=== PATIENT | male | born 1945 | race Caucasian/White ===

== ENCOUNTER → 2020-01-27 08:23 | Outpatient (REF) | payer MEDICARE, SELFPAY ==
--- NOTE | 2020-01-27 08:31 | CA_ITS ---
Transthoracic Echocardiogram Patient (Last, First, Middle): Martin Charles J Gender: Male Date of : 1945 Age: 74 Procedure Date: 01/27/2020 Procedure Type: Transthoracic Echocardiogram Location: OP Height: 177.8 cm Weight: 81.65 kg BSA: 2.00 m2 Heart Rate: bpm BP: 140 / 80 mmHg Public Speaking Coach: MEAGHAN Referring MD: Andres Trinidad MD Breaker Machine Operator: Andres Trinidad MD Symptoms: AFIB Study Quality: Good ECG Rhythm: Sinus Conclusions: - 1. Normal LV systolic function with impaired relaxation filling pattern 2. Mildly dilated left atrium 3. Trace to mild aortic regurgitation 4. Normal RV systolic pressure 5. No pericardial effusion Findings Left Ventricle Normal left ventricular cavity size. There is normal left ventricular wall thickness. The left ventricular systolic function is normal. The visually estimated ejection fraction is between 55-60%. Spectral Doppler is indicative of an impaired relaxation filling pattern. E/E prime ratio is between 8 and 15 consistent with indeterminate filling pressures. Right Ventricle Normal right ventricular cavity size and systolic function. There is a pacemaker wire seen in the right ventricle. Atria The left atrium is mildly dilated. Interatrial shunt cannot be excluded. The right atrium is normal in size. A pacemaker wire is identified in the right atrium. Aortic Valve Normal aortic valve structure and function. There is mild calcification of the aortic valve. There is no aortic valve stenosis. There is mild aortic valve regurgitation. Mitral Valve There is mild anterior and posterior mitral leaflet thickening. There is mild mitral annular calcification. There is trace mitral valve regurgitation. There is no mitral valve stenosis. Pulmonic Valve The pulmonic valve was not well visualized. Tricuspid Valve Likely normal tricuspid valve structure and function. There is mild tricuspid valve regurgitation. The right ventricular systolic pressure is normal. The right ventricular systolic pressure is 25 mmHg. Normal right atrial pressure. There is no evidence of pulmonary hypertension. Great Vessels All visible segments of the aorta are normal in size. The pulmonary artery was not well visualized. Venous The inferior vena cava is normal in size and collapses greater than 50% with inspiration. Pericardium/Pleural There is no evidence of pericardial effusion. Prior Study Comparison No significant change compared to prior study dated: 11/11/2019. Measurements M-Mode Liner Measurements Normals - Women/Men LVIDd: 5.63 3.9-5.3/4.2-5.9 cm LVIDd Index: 2.82 1.9-3.2 cm/m2 LVIDs: 3.84 2.0-3.8 cm M-Mode Volumes LV EDV: 156.00 LV ESV: 63.50 2D Linear Measurements IVSd: 1.10 0.6-0.9/0.6-1.0 cm LVIDd: 5.14 3.9-5.3/4.2-5.9 cm LVIDd Index: 2.57 2.4-3.2/2.2-3.1 cm/m2 LVIDs: 3.73 2.0-3.6 cm LVPWd: 0.94 0.7-1.1 cm Ao Root: 3.50 2.1-3.5 cm LA Diam: 3.90 2.7-3.8/3.0-4.0 cm LAIDs Index: 1.95 1.5-2.3 cm/m2 LV Mass: 311.53 67-162/88-224 g LV Mass Index: 155.77 43-95/49-115 g/m2 LVOT Diam: 2.40 3.0+(-)1.3 cm 2D Systolic Function EF 4C: 51.10 >55% EF 2C: 57.40 >55% EF BiP: 55.50 >55% M-Mode Systolic Function FS: 31.80 27-47/25-43% LVEF: 59.30 >55% Mitral Valve MV Pk E: 0.48 MV PK A: 0.66 MV Decel Time: 387.00 E/A: 0.70 E'Lateral: 6.67 E'Medial: 5.22 E/E' Med: 9.10 E/E' Lat: 7.10 PHT: 113.00 MVA PHT: 1.95 Decel [place]: 1.23 Aortic Valve AoV Pk Lior: 1.17 AoV Pk Grad: 5.00 AI Pk Lior: 4.81 AI [place]: 1.90 LVOT LVOT Pk Lior: 0.77 LVOT Mn Lior: 0.51 LVOT VTI: 0.21 LVOT Pk Grad: 2.00 LVOT Mn Grad: 1.00 LVOT Diam: 2.40 LVOT Area: 4.52 Diastolic Function MV Pk E: 0.48 MV Pk A: 0.66 E/A: 0.70 E'Medial: 5.22 E/E' Med: 9.10 E' Laterial: 6.67 E/E' Lat: 7.10 Tricuspid Valve TR Pk Lior: 2.32 TR Pk Grad: 22.00 RA Press: 3.00 RVSP: 25.00 Great Vessels Aorta Ao Root-2D: 3.50 2.0-3.7 cm Ao Asc: 3.90 2.1-3.4 cm Updated in Other Vendor System with Status of Final Andres Trinidad MD electronically signed on 01/28/2020 3:42:25 PM with status of Final
== END ==
LOC: HO.CARD 08:23
PROVIDERS: PCP Internal Medicine; Visit Provider Internal Medicine Cardiovascular Disease
DX: I48.0 Paroxysmal atrial fibrillation (principal); I10 Essential (primary) hypertension; I25.10 Atherosclerotic heart disease of native coronary artery without angina pectoris; Z95.5 Presence of coronary angioplasty implant and graft
CPT/HCPCS: 93306

== ENCOUNTER → 2020-02-08 08:18 | Outpatient (BNVA) | payer MEDICARE, SELFPAY | PROVIDERS: PCP Internal Medicine; Referring Provider Internal Medicine; Visit Provider Internal Medicine Cardiovascular Disease | DX: Z45.018 Encounter for adjustment and management of other part of cardiac pacemaker (principal); I25.10 Atherosclerotic heart disease of native coronary artery without angina pectoris; I48.0 Paroxysmal atrial fibrillation | CPT/HCPCS: 99212 ==

== ENCOUNTER → 2020-02-21 08:41 | Outpatient (BNVA) | payer MEDICARE, SELFPAY | PROVIDERS: PCP Internal Medicine; Visit Provider Urology | DX: Z85.51 Personal history of malignant neoplasm of bladder (principal) | CPT/HCPCS: 52000; 81002; 99212 ==

== ENCOUNTER 2020-02-22 06:08 | Outpatient (REF) | payer MEDICARE, SELFPAY ==
[2020-02-22 07:19] LABS: MANUAL DIFF FLAG NO
[2020-02-22 07:21] LABS: Basophils Percent Auto 0.4 % (0-2); Eosinophils Absolute Auto 0.1 X10*3/uL (0.0-0.4); Eosinophils Percent Auto 1.9 % (0-4); Hematocrit 39.2 % (42-52); Hemoglobin 13.4 g/dl (14.0-18.0); Imm Gran Abs Auto 0.01 X10*3/uL (0.00-0.03); Imm Gran Pct Auto 0.2 % (0.0-0.4); Lymphocytes Absolute Auto 0.9 X10*3/uL (1.2-4.9); Lymphocytes Percent Auto 16.9 % (20-40); Mean Corpuscular HGB Conc 34.2 g/dl (31.0-36.0); Mean Corpuscular Hemoglobin 32.1 pg (27.0-33.0); Mean Corpuscular Volume 93.8 fL (80-98); Mean Platelet Volume 11.3 fL (9.4-12.4); Monocytes Absolute Auto 0.4 X10*3/uL (0.1-1.2); Neutrophils Absolute Auto 3.9 X10*3/uL (2.0-8.3); Neutrophils Percent Auto 72.6 % (45-73); Platelet Count 165 X10*3/uL (160-400); Red Blood Count 4.18 X10*6/uL (4.60-5.80); Red Cell Distribution Width 12.6 % (11.0-16.0); White Blood Count 5.4 X10*3/uL (4.8-10.8)
[2020-02-22 07:59] LABS: Alanine Aminotransferase 17 U/L (0-40); Albumin Level 3.9 g/dL (3.5-5.0); Alkaline Phosphatase 83 U/L (39-117); Anion Gap 12 (12-20); Aspartate Amino Transferase 15 U/L (5-37); Bilirubin Total 1.6 mg/dL (0.0-1.0); Blood Urea Nitrogen 21 mg/dL (9-16); Calcium 8.7 mg/dL (8.4-10.2); Carbon Dioxide 27 mmol/L (22-29); Chloride 108 mmol/L (96-108); Estimated Glomerular Filt Rate > 60; Glucose Random 107 mg/dL (60-115); Potassium 4.1 mmol/l (3.3-5.1); Sodium 143 mmol/L (135-145); Total Protein 6.2 g/dL (6.5-8.0)
== END 2020-02-22 06:09 | disposition home or self-care (01) ==
LOC: HO.LAB 06:08
PROVIDERS: PCP Internal Medicine Medical Oncology; Referring Provider Internal Medicine Medical Oncology; Visit Provider Internal Medicine Cardiovascular Disease
DX: C68.9 Malignant neoplasm of urinary organ, unspecified (principal)
CPT/HCPCS: 36415; 80053; 85025

== ENCOUNTER 2020-03-15 08:25 | Outpatient (REF) | payer MEDICARE, SELFPAY ==
--- NOTE | 2020-03-15 08:28 | US_ITS ---
EXAMINATION: US EXTRACRANIAL CAROTID DUPLEX, BILATERAL CLINICAL INFORMATION: History of carotid artery disease. COMPARISON: Carotid artery ultrasound on October 22, 2018 TECHNIQUE: Real-time ultrasound and Doppler techniques (integrating B-mode 2-D vascular images, Doppler spectral analysis and color-flow Doppler imaging) were utilized to interrogate the extracranial carotid arteries, the vertebral arteries and proximal subclavian arteries bilaterally. The degree of stenosis is determined by criteria similar to NASCET. FINDINGS: Right Side: 1. There is minimal atherosclerotic plaque seen in the bifurcation/proximal ICA region. 2. The common carotid artery PSV proximally is 82.7 cm/s and distally 63.9 cm/s. 3. The proximal internal carotid artery velocities are 57.8 cm/s systolic and 11.4 cm/s diastolic. 4. The proximal external carotid artery PSV is 111 cm/s. 5. The vertebral artery shows antegrade flow. 6. The subclavian artery waveforms are normal. Left Side: 1. There is minimal atherosclerotic plaque seen in the bifurcation/proximal ICA region. 2. The common carotid artery PSV proximally is 83.3 cm/s and distally 73.3 cm/s. 3. The proximal internal carotid artery velocities are 49.9 cm/s systolic and 13.8 cm/s diastolic. 4. The proximal external carotid artery PSV is 215 cm/s. 5. The vertebral artery shows antegrade flow. 6. The subclavian artery waveforms are normal. US/US carotid duplex BI IMPRESSION: 1. RIGHT: Minimal, non-hemodynamically significant stenosis of the proximal right internal carotid artery corresponding to a 0-49% stenosis by velocity criteria. 2. LEFT: Minimal, non-hemodynamically significant stenosis of the proximal left internal carotid artery corresponding to a 0-49% stenosis by velocity criteria. 3. Elevated velocity within the left external carotid artery of 215 cm/s and is consistent with moderate stenosis. 4. There is no change in the category severity of disease when compared to the previous study dated 10/22/2020.
== END 2020-03-15 08:26 | disposition home or self-care (01) ==
LOC: HO.HMGCX 08:25
PROVIDERS: Visit Provider Internal Medicine Cardiovascular Disease
DX: I77.9 Disorder of arteries and arterioles, unspecified (principal); I67.2 Cerebral atherosclerosis
CPT/HCPCS: 93880

== ENCOUNTER 2020-04-20 08:19 | Emergency (ER) | payer MEDICARE, SELFPAY ==
--- NOTE | ~2020-04-20 | CT_ITS ---
EXAMINATION: CT ABDOMEN AND PELVIS WITHOUT CONTRAST CLINICAL INFORMATION: Hematuria. History of bladder cancer COMPARISON: PET/CT of January 09, 2017 TECHNIQUE: Multidetector volumetric imaging was performed from the superior aspect of the liver through the pubic symphysis. Sagittal and coronal reformatted images were obtained on the technologist's workstation. This CT examination was performed using dose optimization techniques as appropriate, variously including the following: *Automated exposure control *Adjustment of mA and/or kV according to patient size (this includes techniques or standardized protocols for targeted exams where dose is matched to indication/reason for exam; i.e. extremities or head) *Use of iterative reconstruction technique DLP: 637 mGy-cm FINDINGS: LUNG BASES: Pacemaker in place. Coronary artery calcification present. No pleural effusion. No pericardial effusion. LIVER, GALLBLADDER, AND BILIARY TREE: Hepatomegaly is present with vertical span of approximately 21 cm. No focal solid hepatic lesion or biliary ductal dilatation is present. Multiple hepatic cysts are seen. The gallbladder is unremarkable with no evidence of radiopaque gallstones, gallbladder wall thickening, or obvious pericholecystic inflammatory changes. PANCREAS: Unremarkable. SPLEEN: Unremarkable. ADRENAL GLANDS: There is a 1.3 cm lipid rich adenoma seen within the left adrenal gland. The right adrenal gland appears unremarkable. KIDNEYS AND URETERS: There is a 1.4 cm cyst seen within the lower pole of the right kidney. No hydronephrosis or calculi appreciated. Right ureter appears unremarkable. There is moderate left hydronephrosis there is prominence of the left ureter. No calculi are appreciated. BLADDER: About the posterior left lateral aspect of the bladder wall there is a soft tissue density measuring approximately 1.9 x 1.7 cm in size suspicious for bladder wall mass. There are bilateral posterior lateral bladder diverticuli present. GASTROINTESTINAL TRACT: No dilated loops of large or small bowel evident. No free air or free fluid. There is diverticulosis of the colon without evidence of acute diverticulitis. No pericolonic inflammatory change. Appendix not appreciated. ABDOMINAL WALL: There is some soft tissue density seen about the anterior lower left abdominal wall which was present to some degree on study of January 09, 2017 and may be related to previous hernia repair or vascular procedure. Clinical correlation suggested. LYMPH NODES: No lymphadenopathy appreciated. VASCULAR: There is moderate calcified aortoiliac plaque present. No abdominal aortic aneurysm. Calcific plaque is seen at the origin of the visceral vessels. PELVIC VISCERA: Urinary bladder findings as described above. No abnormal pelvic mass. Prostatic calcifications present. OSSEOUS STRUCTURES: No suspicious destructive bony lesions identified. There is degenerative disc disease seen at the L5-S1 level. CT/CT abdomen pelvis wo con IMPRESSION: Left-sided posterior bladder wall mass with moderate left hydronephrosis. Bilateral bladder diverticuli. Hepatomegaly.
[2020-04-20 08:25] VITALS: BP 186/86; PULSE 65; RESP 18; TEMP 36.7; O2SAT 98; BMI 25.8
--- NOTE | 2020-04-20 08:48 | ED_ITS ---
HPI - Male Genitourinary General Chief complaint: Urogenital-Male Stated complaint: urinating blood Time Seen by Provider: 04/20/20 08:41 Source: patient Mode of arrival: ambulatory Limitations: no limitations History of Present Illness HPI Narrative: 75 yo male on xarelto for afib hx of bladder cancer treated with excision comes in with gross hematuria starting this AM - no pain, took his xarelto last night Complaint: other (hematuria) Onset (ago): hour(s) (few) Duration: intermittent Location: penis Severity: moderate Quality: burning Relieving factors: none Exacerbating factors: none Associated symptoms: Reports blood in urine Related Data Home Medications Medication Instructions Recorded Confirmed aspirin 81 mg tablet,delayed 81 mg PO DAILY 02/08/20 02/21/20 release atenolol 25 mg tablet 25 mg PO DAILY 02/08/20 02/21/20 atorvastatin 40 mg tablet mg PO 02/08/20 02/21/20 nifedipine 30 mg tablet,extended 30 mg PO DAILY 02/08/20 02/21/20 release 24 hr rivaroxaban 20 mg tablet 20 mg PO DAILY 02/08/20 02/21/20 nifedipine 60 mg tablet,extended 60 mg PO DAILY 02/21/20 02/21/20 release Previous Rx's Medication Instructions Recorded cefuroxime axetil 500 mg PO BID 7 Days #14 tab 04/20/20 Allergies Allergy/AdvReac Type Severity Reaction Status Date / Time clopidogrel [From PLAVIX] Allergy Intermediate HIVES, rash Verified 02/21/20 08:59 Penicillins [PENICILLINS] Allergy Intermediate HIVES Verified 02/21/20 08:59 Sulfa (Sulfonamide Allergy Intermediate RASH Verified 02/21/20 08:59 Antibiotics) [SULFA (SULFONAMIDE ANTIBIOTICS)] Review of Systems Review of Systems: Constitutional : No Weight loss, No Fever, No Chills ENT/Mouth : No sore throat, No Rhinorrhea Eyes: No Swelling, No Redness Cardiovascular : No Chest Pain, No SOB, NoEdema Respiratory : No Cough, No Sputum, No Wheezing Gastrointestinal : no Nausea, no Vomiting, positive Diarrhea, no abdominal Pain, No Hematochezia, No Melena Genitourinary : pos Dysuria, No Urinary Frequency, posHematuria, No Urgency Musculoskeletal : No joint pain, No Myalgias, No Joint Swelling Skin : No Skin Lesions, No rash Neuro : No Weakness, No Numbness, No Dizziness, No Headache Psych : No Anxiety/Panic, No Depression Heme/Lymph: No Bruising, No Lymphadenopathy Endocrine : No Polyuria, No Polydipsia All other systems reviewed and are negative. [facility] Past Medical History Medical History CAD (coronary artery disease) Cardiac pacemaker in situ Carotid disease, bilateral Chronic kidney disease CVA (cerebral vascular accident) HTN (hypertension) Hyperlipidemia Paroxysmal atrial fibrillation Sick sinus syndrome Surgical History History of permanent cardiac pacemaker placement Hx of cardiac cath Hx of colonoscopy Hx of transurethral resection of prostate Stented coronary artery Family History Family History Father CVD (cardiovascular disease) Mother CVD (cardiovascular disease) Social History Social History Alcohol intake: never Smoking Status: Never smoker Use of substances other than those prescribed or required for medical reasons: No Advance Directives: Yes Advance Directives Information Provided: Yes Advance Directives on File: No Physical Exam Vital Signs: Vital Signs: Last Vital Signs Temp 98.0 F 04/20/20 08:25 Pulse 65 04/20/20 08:25 Resp 18 04/20/20 08:25 BP 186/86 H 04/20/20 08:25 Pulse Ox 98 04/20/20 08:25 Body Mass Index 25.8 Appearance: Alert. Oriented X3. No acute distress. Eyes: Pupils equal, round and reactive to light. ENT: Pharynx normal. Neck: Normal inspection. Neck supple. CVS: Normal heart rate and rhythm. Pulses normal. Respiratory: No respiratory distress. Breath sounds normal. Abdomen: Soft and nontender. Skin: Skin warm and dry. Normal skin color. Normal skin turgor. Extremities: No lower extremity edema. No calf ttp Neuro: Oriented X 3. No motor deficit. No sensory deficit. Course Course Course Narrative: message sent to Dr. Rosa regarding mass, patient now notes his hematuria is clearing in the ED. 1022 follow up as outpatient given the hematuria will hold xarelto until seen by Urology, place on antibiotics given the dysuria MDM - Male Genitourinary MDM Narrative Medical decision making narrative: 75 yo male with c/o hematuria but no pain has hx of bladder cancer on recheck 1 month ago with Urology noted to be all cleared - he is on xarelto for PAF - notes he has brb when urinating this AM only no clots, no pain, no trauma, took his xarelto last night - will need labs, UA, CT scan for mass, dispo per results and findings. Lab Data Result diagrams: 04/20/20 08:50 04/20/20 08:50 Labs: Lab Results 04/20/20 04/20/20 04/20/20 Range/Units 08:35 08:50 08:50 WBC 5.9 (4.8-10.8) X10*3/uL RBC 4.06 L (4.60-5.80) X10*6/uL Hgb 13.3 L (14.0-18.0) g/dl Hct 37.6 L (42-52) % MCV 92.6 (80-98) fL MCH 32.8 (27.0-33.0) pg MCHC 35.4 (31.0-36.0) g/dl RDW 12.4 (11.0-16.0) % Plt Count 152 L (160-400) X10*3/uL MPV 10.9 (9.4-12.4) fL Immature Gran % (Auto) 0.2 (0.0-0.4) % Neut % (Auto) 72.3 (45-73) % Lymph % (Auto) 18.1 L (20-40) % [place] % (Auto) 7.9 (2-11) % Eos % (Auto) 1.2 (0-4) % Baso % (Auto) 0.3 (0-2) % Lymph # (Auto) 1.1 L (1.2-4.9) X10*3/uL [place] # (Auto) 0.5 (0.1-1.2) X10*3/uL Eos # (Auto) 0.1 (0.0-0.4) X10*3/uL Baso # (Auto) 0.0 (0.0-0.2) X10*3/uL Abs Immat Gran (auto) 0.01 (0.00-0.03) X10*3/uL Absolute Neuts (auto) 4.3 (2.0-8.3) X10*3/uL Absolute Nucleated RBC 0.000 (0.0-0.012) X10*3/uL Nucleated RBC % (auto) 0.0 (0.0-0.2) /100WBC PT (10.8-13.0) SEC INR (0.9-1.1) APTT (24.1-38.0) SEC Sodium 140 (135-145) mmol/L Potassium 3.9 (3.3-5.1) mmol/L Chloride 108 (96-108) mmol/L Carbon Dioxide 23 (22-29) mmol/L Anion Gap 13 (12-20) BUN 20 H (9-16) mg/dL Creatinine 1.12 (0.5-1.4) mg/dL Estim Creat Clear Calc 60.6 Estimated GFR > 60 Random Glucose 113 (60-115) mg/dL Calcium 8.7 (8.4-10.2) mg/dL Magnesium 1.9 (1.6-2.6) mg/dL Total Bilirubin 1.4 H (0.0-1.0) mg/dL Direct Bilirubin 0.5 (0.0-0.5) mg/dL AST 15 (5-37) U/L ALT 13 (0-40) U/L Alkaline Phosphatase 88 (39-117) U/L Total Protein 6.4 L (6.5-8.0) g/dL Albumin 3.8 (3.5-5.0) g/dL Urine Color RED Urine Appearance TURBID Urine pH 6.5 (5.0-8.0) Ur Specific [place] 1.020 (1.005-1.025) Urine Protein 2+ H (NEG-TRACE) MG/DL Urine Glucose (UA) NEG (NEG) MG/DL Urine Ketones NEG (NEG) MG/DL Urine Blood 3+ H (NEG) Urine Nitrite SEE NOTE (NEG) Ur Leukocyte Esterase SEE NOTE (NEG) Urine RBC TNTC H (0) /HPF Urine WBC 0-2 (0-4) /HPF Ur Squamous Epith Cells NONE /LPF Urine Bacteria TNP COVID-19 (DANYA) (Negative) COVID-19 Clin Com Blood Type Antibody Screen 04/20/20 04/20/20 04/20/20 Range/Units 08:50 08:50 08:56 WBC (4.8-10.8) X10*3/uL RBC (4.60-5.80) X10*6/uL Hgb (14.0-18.0) g/dl Hct (42-52) % MCV (80-98) fL MCH (27.0-33.0) pg MCHC (31.0-36.0) g/dl RDW (11.0-16.0) % Plt Count (160-400) X10*3/uL MPV (9.4-12.4) fL Immature Gran % (Auto) (0.0-0.4) % Neut % (Auto) (45-73) % Lymph % (Auto) (20-40) % [place] % (Auto) (2-11) % Eos % (Auto) (0-4) % Baso % (Auto) (0-2) % Lymph # (Auto) (1.2-4.9) X10*3/uL [place] # (Auto) (0.1-1.2) X10*3/uL Eos # (Auto) (0.0-0.4) X10*3/uL Baso # (Auto) (0.0-0.2) X10*3/uL Abs Immat Gran (auto) (0.00-0.03) X10*3/uL Absolute Neuts (auto) (2.0-8.3) X10*3/uL Absolute Nucleated RBC (0.0-0.012) X10*3/uL Nucleated RBC % (auto) (0.0-0.2) /100WBC PT 17.2 H (10.8-13.0) SEC INR 1.4 H (0.9-1.1) APTT 41.6 H (24.1-38.0) SEC Sodium (135-145) mmol/L Potassium (3.3-5.1) mmol/L Chloride (96-108) mmol/L Carbon Dioxide (22-29) mmol/L Anion Gap (12-20) BUN (9-16) mg/dL Creatinine (0.5-1.4) mg/dL Estim Creat Clear Calc Estimated GFR Random Glucose (60-115) mg/dL Calcium (8.4-10.2) mg/dL Magnesium (1.6-2.6) mg/dL Total Bilirubin (0.0-1.0) mg/dL Direct Bilirubin (0.0-0.5) mg/dL AST (5-37) U/L ALT (0-40) U/L Alkaline Phosphatase (39-117) U/L Total Protein (6.5-8.0) g/dL Albumin (3.5-5.0) g/dL Urine Color Urine Appearance Urine pH (5.0-8.0) Ur Specific [place] (1.005-1.025) Urine Protein (NEG-TRACE) MG/DL Urine Glucose (UA) (NEG) MG/DL Urine Ketones (NEG) MG/DL Urine Blood (NEG) Urine Nitrite (NEG) Ur Leukocyte Esterase (NEG) Urine RBC (0) /HPF Urine WBC (0-4) /HPF Ur Squamous Epith Cells /LPF Urine Bacteria COVID-19 (DANYA) Negative (Negative) COVID-19 Clin Com See Note Blood Type B Positive Antibody Screen NEGATIVE Discharge Plan Discharge Clinical Impression: Gross hematuria, Bladder mass Patient Disposition: Home, Self-Care Instructions: Hematuria (ED) Additional Instructions: STOP XARELTO UNTIL YOU ARE SEEN BY UROLOGY IF YOU CANNOT URINATE PLEASE RETURN TO THE ED, IF YOU HAVE WORSENING SYMPTOMS PLEASE RETURN Prescriptions: New cefuroxime axetil 500 mg tablet 500 mg PO BID 7 Days Qty: 14 RF: 0 No Action Xarelto 20 mg tablet 20 mg PO DAILY RF: 0 atenolol 25 mg tablet 25 mg PO DAILY RF: 0 atorvastatin 40 mg tablet PO RF: 0 nifedipine 30 mg tablet extended release 24hr 30 mg PO DAILY RF: 0 aspirin [Adult Low Dose Aspirin] 81 mg tablet,delayed release (DR/EC) 81 mg PO DAILY RF: 0 nifedipine 60 mg tablet extended release 60 mg PO DAILY RF: 0 Referrals: Regan Rosa MD [Physician] - 1 day (call office today )
[2020-04-20 09:03] LABS: MANUAL DIFF FLAG NO
[2020-04-20 09:07] LABS: Basophils Percent Auto 0.3 % (0-2); Eosinophils Absolute Auto 0.1 X10*3/uL (0.0-0.4); Eosinophils Percent Auto 1.2 % (0-4); Hematocrit 37.6 % (42-52); Hemoglobin 13.3 g/dl (14.0-18.0); Imm Gran Abs Auto 0.01 X10*3/uL (0.00-0.03); Imm Gran Pct Auto 0.2 % (0.0-0.4); Lymphocytes Absolute Auto 1.1 X10*3/uL (1.2-4.9); Lymphocytes Percent Auto 18.1 % (20-40); Mean Corpuscular HGB Conc 35.4 g/dl (31.0-36.0); Mean Corpuscular Hemoglobin 32.8 pg (27.0-33.0); Mean Corpuscular Volume 92.6 fL (80-98); Mean Platelet Volume 10.9 fL (9.4-12.4); Monocytes Absolute Auto 0.5 X10*3/uL (0.1-1.2); Monocytes Percent Auto 7.9 % (2-11); Neutrophils Absolute Auto 4.3 X10*3/uL (2.0-8.3); Neutrophils Percent Auto 72.3 % (45-73); Platelet Count 152 X10*3/uL (160-400); Red Blood Count 4.06 X10*6/uL (4.60-5.80); Red Cell Distribution Width 12.4 % (11.0-16.0); White Blood Count 5.9 X10*3/uL (4.8-10.8)
[2020-04-20 09:14] LABS: INTERNATIONAL NORM RATIO 1.4 (0.9-1.1); Prothrombin Time 17.2 SEC (10.8-13.0)
[2020-04-20 09:17] LABS: Partial Thromboplastin Time 41.6 SEC (24.1-38.0)
[2020-04-20 09:32] LABS: COVID-19 Test Negative (Negative)
[2020-04-20 09:36] LABS: Appearance Urine TURBID
[2020-04-20 09:37] LABS: Glucose Urine UA NEG (NEG); PH 6.5 (5.0-8.0); Urine Blood 3+ (NEG)
[2020-04-20 09:38] LABS: Alanine Aminotransferase 13 U/L (0-40); Albumin Level 3.8 g/dL (3.5-5.0); Alkaline Phosphatase 88 U/L (39-117); Anion Gap 13 (12-20); Aspartate Amino Transferase 15 U/L (5-37); Bilirubin Direct 0.5 mg/dL (0.0-0.5); Bilirubin Total 1.4 mg/dL (0.0-1.0); Blood Urea Nitrogen 20 mg/dL (9-16); Calcium 8.7 mg/dL (8.4-10.2); Carbon Dioxide 23 mmol/L (22-29); Chloride 108 mmol/L (96-108); Creatinine Clr Calc Pharmacy 60.6; Estimated Glomerular Filt Rate > 60; Glucose Random 113 mg/dL (60-115); Magnesium 1.9 mg/dL (1.6-2.6); Potassium 3.9 mmol/L (3.3-5.1); Sodium 140 mmol/L (135-145); Total Protein 6.4 g/dL (6.5-8.0)
[2020-04-20 09:38] LABS: Color Urine RED; Urine Ketones NEG (NEG); Urine Protein 2+ MG/DL (NEG-TRACE)
[2020-04-20 09:39] LABS: UACC Culture Trigger YES
[2020-04-20 09:41] LABS: RBC Urine TNTC /HPF (0)
[2020-04-20 09:42] LABS: WBC Urine 0-2 /HPF (0-4)
--- NOTE | 2020-04-20 10:25 | PC.NURSE ---
plan to contact urology for consult regarding new bladder mass noted on ct scan. pt reports to this rn that the urine is starting to clear up to a light pink color. aware.
== END 2020-04-20 10:50 | disposition home or self-care (01) ==
PROVIDERS: Emergency Provider Emergency Medicine; PCP Internal Medicine
DX: R31.0 Gross hematuria (principal); N32.9 Bladder disorder, unspecified; Z20.822 Contact with and (suspected) exposure to COVID-19; I12.9 Hypertensive chronic kidney disease with stage 1 through stage 4 chronic kidney disease, or unspecified chronic kidney disease; N18.9 Chronic kidney disease, unspecified; Z85.51 Personal history of malignant neoplasm of bladder; I48.91 Unspecified atrial fibrillation; Z79.01 Long term (current) use of anticoagulants; Z79.82 Long term (current) use of aspirin; Z95.0 Presence of cardiac pacemaker; Z86.73 Personal history of transient ischemic attack (TIA), and cerebral infarction without residual deficits
CPT/HCPCS: 36415; 74176; 80048; 80076; 81001; 81003; 83735; 85025; 85610; 85730; 86850; 86900; 86901; 87086; 87635; 99284

== ENCOUNTER → 2020-04-25 11:18 | Outpatient (BNVA) | payer MEDICARE, SELFPAY | PROVIDERS: PCP Internal Medicine; Visit Provider Urology | DX: C67.9 Malignant neoplasm of bladder, unspecified (principal); N13.30 Unspecified hydronephrosis | CPT/HCPCS: 99212 ==

== ENCOUNTER 2020-05-22 06:28 | Day surgery (SDC) | payer MEDICARE, SELFPAY ==
--- NOTE | 2020-05-16 | ECG_ITS ---
Test Reason : PREOP Blood Pressure : / mmHG Vent. Rate : 063 BPM Atrial Rate : 063 BPM P-R Int : 208 ms QRS Dur : 118 ms QT Int : 428 ms P-R-T Axes : -07 -32 053 degrees QTc Int : 437 ms Atrial-paced rhythm with occasional Premature ventricular complexes Left axis deviation Lateral infarct , age undetermined Abnormal ECG When compared with ECG of 21-MAR-2010 13:45, Electronic atrial pacemaker has replaced Sinus rhythm Referred By: Ambreen Drew Electronically Signed By:MARIAM TORO
[2020-05-16 11:45] VITALS: BP 163/80; PULSE 60; RESP 16; O2SAT 98; BMI 26.9
--- NOTE | 2020-05-16 12:08 | HO.ANESPROP2 ---
Documented by User: Ambreen Floresney 05/17/20 13:12 HPI - Anesthesia Eval Consult details Narrative: 75yo M for Cystoscopy with Retrograde & Bladder Biopsy 02/2020 Cardiology office visit - stable CAD, BP meds adjusted, pacer reprogrammed for improved rate response to his activity level. [facility] Active Problems Active Problems: All Active Problems (Updated 05/15/20 @ 15:12 by Colleen Beatty) Bladder cancer (Acute) Hydronephrosis (Acute) CAD (coronary artery disease) (Acute) Paroxysmal atrial fibrillation (Acute) Cardiac pacemaker in situ (Acute) Sick sinus syndrome (Acute) Hyperlipidemia (Acute) HTN (hypertension) (Acute) Carotid disease, bilateral (Acute) Chronic kidney disease (Acute) Past Medical History Medical History Acoustic neuroma CAD (coronary artery disease) Cardiac pacemaker in situ Carotid disease, bilateral Chronic kidney disease CVA (cerebral vascular accident) History of TIAs HTN (hypertension) Hyperlipidemia Paroxysmal atrial fibrillation Sick sinus syndrome Family History Family History Father CVD (cardiovascular disease) Mother CVD (cardiovascular disease) Family history of problems with anesthesia: No Surgical History Surgical History History of permanent cardiac pacemaker placement Hx of cardiac cath Hx of colonoscopy Hx of cystoscopy Hx of left inguinal hernia repair Stented coronary artery History of Problems with Anesthesia: No Social History Social History Alcohol intake: never Smoking Status: Never smoker Use of substances other than those prescribed or required for medical reasons: No Advance Directives: No Advance Directives Information Provided: No Advance Directives on File: No Recently lost weight without trying: No Narrative Narrative: No recent illness. Treadmill 1 hour daily without CP or SOB. Meds Allergies Allergy/AdvReac Type Severity Reaction Status Date / Time clopidogrel [From PLAVIX] Allergy Intermediate HIVES, rash Verified 05/22/20 06:51 Sulfa (Sulfonamide Allergy Intermediate RASH Verified 05/22/20 06:51 Antibiotics) [SULFA (SULFONAMIDE ANTIBIOTICS)] Home Medications Medication Instructions Recorded Confirmed Last Taken Type aspirin 81 mg tablet,delayed 81 mg PO DAILY 02/08/20 05/15/20 05/18/20 History release atenolol 25 mg tablet 25 mg PO .AT NOON 02/08/20 05/16/20 Unknown History atorvastatin 40 mg tablet 40 mg PO BEDTIME 02/08/20 05/15/20 Unknown History nifedipine 30 mg tablet,extended 30 mg PO DAILY 02/08/20 05/15/20 05/22/20 04:30 History release 24 hr rivaroxaban 20 mg tablet 20 mg PO DAILY 02/08/20 05/15/20 05/18/20 History cyanocobalamin (vitamin B-12) 1,000 mcg PO DAILY 05/15/20 05/15/20 Unknown History [Vitamin B-12] doxazosin 1 tab PO DAILY@1700 05/15/20 05/16/20 Unknown History Exam Exam Date and Time: May 16, 2020 1208 Height,Weight and Vital Signs: Height 5 ft 10 in Weight 85.1 kg Last Vital Signs Pulse 60 05/16/20 11:45 Resp 16 05/16/20 11:45 BP 163/80 H 05/16/20 11:45 Pulse Ox 98 05/16/20 11:45 Pertinent Lab Results Pertinent Lab Results: Laboratory Tests 04/20/20 04/20/20 08:50 08:50 WBC 5.9 Hgb 13.3 L Hct 37.6 L Plt Count 152 L Sodium 140 Potassium 3.9 Chloride 108 Carbon Dioxide 23 BUN 20 H Creatinine 1.12 Narrative Narrative: EKG 04/2020 A-paced with Occ PVCs LAD Lateral infarct, age undetermined (seen on 08/2019 EKG) Pacer Interr 03/04/20 DDDR-60, AP 51%, [employer] 10% AF burden 12% ECHO 01/2020 Conclusions: - 1. Normal LV systolic function with impaired relaxation filling pattern, EF 55-60% 2. Mildly dilated left atrium 3. Trace to mild aortic regurgitation 4. Normal RV systolic pressure 5. No pericardial effusion Carotid Doppler 02/2020 R ICA 0-49% L ICA 0-49% Moderate stenosis No signif change from 09/2019 Airway Mallampati Class: I TM Dist: >3cm Neck ROM: Full Loose/Missing/Broken Teeth: No Heart: irreg Lungs: CTAB Assessment and Plan Assessment Anesthesia Assessment: Anesthesia Plan Discussed and PAT Visit Documented by User: Krishna Pathak MD 05/22/20 08:00 [facility] Past Medical History Medical History Acoustic neuroma CAD (coronary artery disease) Cardiac pacemaker in situ Carotid disease, bilateral Chronic kidney disease CVA (cerebral vascular accident) History of TIAs HTN (hypertension) Hyperlipidemia Paroxysmal atrial fibrillation Sick sinus syndrome Family History Family History Father CVD (cardiovascular disease) Mother CVD (cardiovascular disease) Surgical History Surgical History History of permanent cardiac pacemaker placement Hx of cardiac cath Hx of colonoscopy Hx of cystoscopy Hx of left inguinal hernia repair Stented coronary artery Social History Social History Alcohol intake: never Smoking Status: Never smoker Use of substances other than those prescribed or required for medical reasons: No Advance Directives: No Advance Directives Information Provided: No Advance Directives on File: No Recently lost weight without trying: No Meds Allergies Allergy/AdvReac Type Severity Reaction Status Date / Time clopidogrel [From PLAVIX] Allergy Intermediate HIVES, rash Verified 05/22/20 06:51 Sulfa (Sulfonamide Allergy Intermediate RASH Verified 05/22/20 06:51 Antibiotics) [SULFA (SULFONAMIDE ANTIBIOTICS)] Home Medications Medication Instructions Recorded Confirmed Last Taken Type aspirin 81 mg tablet,delayed 81 mg PO DAILY 02/08/20 05/15/20 05/18/20 History release atenolol 25 mg tablet 25 mg PO .AT NOON 02/08/20 05/16/20 Unknown History atorvastatin 40 mg tablet 40 mg PO BEDTIME 02/08/20 05/15/20 Unknown History nifedipine 30 mg tablet,extended 30 mg PO DAILY 02/08/20 05/15/20 05/22/20 04:30 History release 24 hr rivaroxaban 20 mg tablet 20 mg PO DAILY 02/08/20 05/15/20 05/18/20 History cyanocobalamin (vitamin B-12) 1,000 mcg PO DAILY 05/15/20 05/15/20 Unknown History [Vitamin B-12] doxazosin 1 tab PO DAILY@1700 05/15/20 05/16/20 Unknown History Assessment and Plan Assessment Anesthesia Assessment: Anesthesia Plan Discussed and Chart Reviewed Final Anesthetic Review NPO: Yes ASA Class: III Final Preanesthetic Review: No Changes in Pt Med Stat, Meds/Allgs Chart Reviewed, Consent Obtained/Reviewed and Anes Risks/Benef Reviewed Patient Risk: High Procedure Risk: Low Anesthetic Plan Anesthetic Plan: MAC: Disposition: Standard PACU
[2020-05-22 07:04] VITALS: BP 145/56; PULSE 58; RESP 18; TEMP 36.7; O2SAT 97
[2020-05-22] MEDS: Lactated Ringers 1,000 ML 50 ML IV (07:14)
--- NOTE | 2020-05-22 07:41 | MHC.SHP ---
Pre-Procedural Eval Section A The patient is an INPATIENT: No Changes since office visit: No Cold of Flu in the past 2 weeks, No New Medical Problems, No Changes in Medication and No Patient answered all questions The History & Physical has been completed within 30 days and I have reviewed it.: Yes Section B Chief Complaint: malignant neoplasm of bladder Allergies: Allergies Allergy/AdvReac Type Severity Reaction Status Date / Time clopidogrel [From PLAVIX] Allergy Intermediate HIVES, rash Verified 05/22/20 06:51 Sulfa (Sulfonamide Allergy Intermediate RASH Verified 05/22/20 06:51 Antibiotics) [SULFA (SULFONAMIDE ANTIBIOTICS)] Plan Diagnosis/Plan: Unchanged (Cysto, left bladder wall lesion removal, left retrograde possible stent) I have reviewed the history and physical and performed a pertinent physical examination on my patient. No changes have occurred unless specified.
[2020-05-22] MEDS: levoFLOXacin 500 MG TABLET PO (07:44)
--- NOTE | 2020-05-22 09:22 | P.BOP_ITS ---
Brief Operative Note Date of Service: 05/22/20 Pre-op diagnosis: bladder tumor, left hydronephrosis Post-op diagnosis: same Procedure: TURBT, left retrograde and stent placement Implants: 6 [place] by 24 cm double-J stent Surgeon: Regan Rosa MD Anesthesia: GLMA Estimated blood loss (mL): 0 Pathology: other Condition: stable Disposition: same day
[2020-05-22 09:25] VITALS: BP 93/58; PULSE 57; RESP 14; TEMP 36.5; O2SAT 95
[2020-05-22 09:30] VITALS: BP 150/75; PULSE 52; RESP 16; O2SAT 97
--- NOTE | 2020-05-22 09:30 | PM.OP ---
Brief Operative Note Date of Service: 05/22/20 Pre-op diagnosis: recurrent bladder tumor and left hydronephrosis Post-op diagnosis: same Procedure: TURBT, left retrograde, left stent placement Implants: 6 Romanian by 24 cm stent Surgeon: Regan Rosa MD Anesthesia: GLMA Estimated blood loss (mL): 0 Pathology: other Condition: stable Disposition: same day
--- NOTE | 2020-05-22 09:31 | W.PM.OPN ---
Operative Note Operative Note Date of Service: 05/22/20 Narrative: PreOperative Diagnosis: recurrent bladder tumor, left hydronephrosis Post Operative Diagnosis: recurrent bladder tumor, left hydronephrosis Procedure: TURBT large, left retrograde, left stent placement Surgeon: Dr Regan Rosa Anesthesia: general Indications for procedure: this is a 75-year-old male. Previously diagnosed with invasive bladder cancer. Had undergone chemo radiation. On interval imaging noted to have a lesion by the left ureteric orifice with left hydronephrosis. This brought to operating room for diagnosis and resection of lesion. Procedure: After informed consent was verified the patient was brought to the operating room and placed in a supine position. Anesthesia was administered per protocol. patient was placed in modified dorsal lithotomy position and prepped and draped in a sterile fashion. Safety pause time-out was performed. Antibiotics being given. Twenty-two [place] cystoscope inserted per urethra. No abnormality found the anterior posterior urethra. Bladder was entered. There was a left sidewall bladder tumor immediately superior to the left ureteric orifice. Right ureteric orifice had been pulled medially secondary to radiation. entry to the left ureteric orifice was attempted. Was difficult secondary to change in anatomy due to prior radiation. Eventually we were able to thread an open-ended catheter with an angled Glidewire into the left ureteric orifice. Retrograde examination showed hydronephrosis. The Sensor guidewire was placed up to the level renal pelvis and the open-ended catheter left to help demarcate the orifice. Using the resectoscope the lesion area was resected. The it appeared to be changes within the bladder wall with either necrotic or tissue. This was removed. We did not extensively dissect as appeared that this may have been a prior tissue that had been treated with radiation. The entire area was fulgurated upon completion of the resection. Resection was approximately 5 cm of tissue. after the tissue had been removed the regular cystoscope was placed. This was back loaded over the wire and open-ended catheter. A 6 [place] by 24 cm stent was placed with good coil in renal pelvis and in the bladder. The patient is on anticoagulation in this will need to be held for few days to allow healing. A Pleitez catheter was placed to allow decompression for 48-72 hours. He tolerated procedure well was extubated in operating room transferred in stable condition to recovery area. Pathology: Bladder tumor Drains: left double-J stent Pleitez catheter
[2020-05-22 09:35] VITALS: BP 150/76; PULSE 51; RESP 16; O2SAT 96
[2020-05-22] MEDS: Acetaminophen 325 MG TABLET 650 MG PO (09:39)
[2020-05-22 09:41] VITALS: BP 164/106; PULSE 58; RESP 18; O2SAT 97
[2020-05-22 10:13] VITALS: BP 165/72; PULSE 71; RESP 16; O2SAT 96
== END 2020-05-22 10:33 | disposition home or self-care (01) ==
PROVIDERS: PCP Internal Medicine; Visit Provider Urology
PROC: (CPT 52240; principal; 2020-05-22 08:30)
DX: C67.9 Malignant neoplasm of bladder, unspecified (principal); N13.30 Unspecified hydronephrosis; D33.3 Benign neoplasm of cranial nerves; I25.10 Atherosclerotic heart disease of native coronary artery without angina pectoris; Z98.61 Coronary angioplasty status; I12.9 Hypertensive chronic kidney disease with stage 1 through stage 4 chronic kidney disease, or unspecified chronic kidney disease; N18.9 Chronic kidney disease, unspecified; Z95.0 Presence of cardiac pacemaker; I48.91 Unspecified atrial fibrillation; I49.5 Sick sinus syndrome; Z86.73 Personal history of transient ischemic attack (TIA), and cerebral infarction without residual deficits; Z92.3 Personal history of irradiation; Z79.01 Long term (current) use of anticoagulants
CPT/HCPCS: 52240; 52332; 88307; 93005; C1769; C2617; J2405; J3010; Q9967

== ENCOUNTER → 2020-05-25 14:43 | Outpatient (BNVA) | payer MEDICARE, SELFPAY | PROVIDERS: PCP Internal Medicine; Visit Provider Urology | DX: C67.9 Malignant neoplasm of bladder, unspecified (principal) | CPT/HCPCS: 51700; 99212 ==

== ENCOUNTER 2020-06-20 06:28 | Outpatient (REF) | payer MEDICARE, SELFPAY ==
[2020-06-20 11:15] LABS: Urine Cytology See Pathology rpt
[2020-06-20 11:20] LABS: Hematocrit 37.1 % (42-52); Hemoglobin 12.7 g/dl (14.0-18.0); Mean Corpuscular HGB Conc 34.2 g/dl (31.0-36.0); Mean Corpuscular Hemoglobin 32.1 pg (27.0-33.0); Mean Corpuscular Volume 93.7 fL (80-98); Mean Platelet Volume 12.5 fL (9.4-12.4); Platelet Count 165 X10*3/uL (160-400); Red Blood Count 3.96 X10*6/uL (4.60-5.80); White Blood Count 5.6 X10*3/uL (4.8-10.8)
[2020-06-20 12:03] LABS: Erythrocyte Sedimentation Rate 14 MM/HR (0-15)
[2020-06-20 12:06] LABS: Alanine Aminotransferase 11 U/L (0-40); Albumin Level 3.7 g/dL (3.5-5.0); Alkaline Phosphatase 102 U/L (39-117); Anion Gap 13 (12-20); Aspartate Amino Transferase 13 U/L (5-37); Bilirubin Total 1.3 mg/dL (0.0-1.0); Blood Urea Nitrogen 16 mg/dL (9-16); Calcium 8.7 mg/dL (8.4-10.2); Carbon Dioxide 25 mmol/L (22-29); Chloride 109 mmol/L (96-108); Cholesterol 122 mg/dL; Estimated Glomerular Filt Rate > 60; Glucose Fasting 103 mg/dL (60-99); HDL Cholesterol 45 mg/dL; LDL Cholesterol Calculated 65 mg/dl; Sodium 143 mmol/L (135-145); Total Protein 6.2 g/dL (6.5-8.0); Triglycerides 63 mg/dL
[2020-06-20 12:13] LABS: Vitamin D 25-OH Total 17.6 ng/mL (>30)
== END 2020-06-20 06:29 | disposition home or self-care (01) ==
LOC: HO.HMGCLDS 06:28
PROVIDERS: Internal Medicine Cardiovascular Disease; Urology; PCP Internal Medicine; Visit Provider Internal Medicine Medical Oncology
DX: C68.9 Malignant neoplasm of urinary organ, unspecified (principal); N18.9 Chronic kidney disease, unspecified; E66.3 Overweight
CPT/HCPCS: 36415; 80053; 80061; 82306; 85027; 85652; 88112; 88305

== ENCOUNTER → 2020-06-26 05:59 | Day surgery (SDC) | payer MEDICARE, SELFPAY ==
[2020-06-21 13:17] VITALS: BMI 26.8
--- NOTE | 2020-06-22 15:26 | HO.ANESPROP2 ---
HPI - Anesthesia Eval Consult details Narrative: 75yo M for Cystoscopy & TUR Bladder Tumor with Gemcitabine s/p Cystoscopy with Retrograde & Bladder Biopsy with GA-LMA 04/2020 Cardiology office visit - stable CAD, BP meds adjusted, pacer reprogrammed for improved rate response to his activity level. Xarelto for afib 06/26/20 - Surgery cx'd d/t asymptomatic afib with RVR @130's PMFSH Active Problems Active Problems: All Active Problems (Updated 06/21/20 @ 09:31 by Arabella Bradley) Bladder cancer (Acute) Hydronephrosis (Acute) CAD (coronary artery disease) (Acute) Paroxysmal atrial fibrillation (Acute) Cardiac pacemaker in situ (Acute) Sick sinus syndrome (Acute) Hyperlipidemia (Acute) HTN (hypertension) (Acute) Carotid disease, bilateral (Acute) Chronic kidney disease (Acute) Past Medical History Medical History Acoustic neuroma CAD (coronary artery disease) Cardiac pacemaker in situ Carotid disease, bilateral Chronic kidney disease CVA (cerebral vascular accident) Hard of hearing History of TIAs HTN (hypertension) Hyperlipidemia Paroxysmal atrial fibrillation Sick sinus syndrome Family History Family History Father CVD (cardiovascular disease) Mother CVD (cardiovascular disease) Surgical History Surgical History History of permanent cardiac pacemaker placement Hx of cardiac cath Hx of colonoscopy Hx of cystoscopy Hx of left inguinal hernia repair Stented coronary artery Social History Social History Are you a primary ambulatory care nurse to a significant other at home: No Do you presently have visiting nurse or other home services: No Alcohol intake: never Smoking Status: Never smoker Second Hand Smoke Exposure: No Use of substances other than those prescribed or required for medical reasons: No Have you been hit, kicked, punched, or otherwise hurt by someone within the past year? If so, by whom?: No Are you DNR?: No Advance Directives: No Advance Directives Information Provided: No Advance Directives on File: No Recently lost weight without trying: No Eating poorly because of decreased appetite: No Nutrition Risks: No Nutritional Risk Meds Allergies Allergy/AdvReac Type Severity Reaction Status Date / Time clopidogrel [From PLAVIX] Allergy Intermediate HIVES, rash Verified 06/26/20 06:11 Sulfa (Sulfonamide Allergy Intermediate RASH Verified 06/26/20 06:11 Antibiotics) [SULFA (SULFONAMIDE ANTIBIOTICS)] Home Medications Medication Instructions Recorded Confirmed Last Taken Type aspirin 81 mg tablet,delayed 81 mg PO DAILY 02/08/20 06/21/20 05/18/20 History release atenolol 25 mg tablet 25 mg PO .AT NOON 02/08/20 06/21/20 Unknown History atorvastatin 40 mg tablet 40 mg PO BEDTIME 02/08/20 06/21/20 Unknown History nifedipine 30 mg tablet,extended 30 mg PO DAILY 02/08/20 06/21/20 06/26/20 04:00 History release 24 hr rivaroxaban 20 mg tablet 20 mg PO DAILY 02/08/20 06/21/20 05/18/20 History cyanocobalamin (vitamin B-12) 1,000 mcg PO DAILY 05/15/20 06/21/20 06/26/20 04:00 History [Vitamin B-12] doxazosin 1 tab PO DAILY@1700 05/15/20 06/21/20 Unknown History Exam Exam Date and Time: June 22, 2020 1526 Height,Weight and Vital Signs: Height 5 ft 10 in Weight 84.822 kg Narrative Narrative: EKG 04/2020 A-paced with Occ PVCs LAD Lateral infarct, age undetermined (seen on 08/2019 EKG) Pacer Interr 06/14 DDDR-60, AP 49%, [employer]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 Normal LV systolic function with impaired relaxation filling pattern, EF 55-60% 2. Mildly dilated left atrium 3. Trace to mild aortic regurgitation 4. Normal RV systolic pressure 5. No pericardial effusion Carotid Doppler 02/2020 R ICA 0-49% L ICA 0-49% Moderate stenosis No signif change from 09/2019 Assessment and Plan Assessment Anesthesia Assessment: Chart Reviewed
--- NOTE | 2020-06-26 | ECG_ITS ---
Test Reason : PRE OP BLADDER CANCE Blood Pressure : / mmHG Vent. Rate : 124 BPM Atrial Rate : 119 BPM P-R Int : 000 ms QRS Dur : 120 ms QT Int : 358 ms P-R-T Axes : 000 -40 080 degrees QTc Int : 514 ms Atrial fibrillation with rapid ventricular response Non-specific intra-ventricular conduction delay Nonspecific ST abnormality Abnormal ECG When compared with ECG of 16-MAY-2020 12:32, Rhythm change Referred By: Salvatore Egan Electronically Signed By:MARIAM TORO
[2020-06-26 06:14] VITALS: BP 150/73; PULSE 107; RESP 18; TEMP 36.4; O2SAT 97
[2020-06-26] MEDS: Lactated Ringers 1,000 ML 100 ML IVCONT (06:39)
--- NOTE | 2020-06-26 07:35 | PC.NURSE ---
pt heart rate high up to 130's. anes made aware. ekg done. evaluated by anes and surgery cancelled. to be sent home due to no symptoms.
--- NOTE | 2020-06-26 07:40 | MHC.SHP ---
Pre-Procedural Eval Section A The patient is an INPATIENT: No Changes since office visit: Yes Cold of Flu in the past 2 weeks, Yes New Medical Problems, Yes Changes in Medication and Yes Patient answered all questions The History & Physical has been completed within 30 days and I have reviewed it.: Yes Section B Chief Complaint: Bladder Cancer Allergies: Allergies Allergy/AdvReac Type Severity Reaction Status Date / Time clopidogrel [From PLAVIX] Allergy Intermediate HIVES, rash Verified 06/26/20 06:11 Sulfa (Sulfonamide Allergy Intermediate RASH Verified 06/26/20 06:11 Antibiotics) [SULFA (SULFONAMIDE ANTIBIOTICS)] Plan Diagnosis/Plan: Change (Procedures today is canceled secondary toCancelled secondary to high rate A fib - plan for gemcitabine) I have reviewed the history and physical and performed a pertinent physical examination on my patient. No changes have occurred unless specified.
== END ==
PROVIDERS: PCP Internal Medicine; Visit Provider Urology
DX: C67.9 Malignant neoplasm of bladder, unspecified (principal); Z53.09 Procedure and treatment not carried out because of other contraindication; I48.0 Paroxysmal atrial fibrillation; I12.9 Hypertensive chronic kidney disease with stage 1 through stage 4 chronic kidney disease, or unspecified chronic kidney disease; N18.9 Chronic kidney disease, unspecified; I25.10 Atherosclerotic heart disease of native coronary artery without angina pectoris; Z98.61 Coronary angioplasty status; Z95.0 Presence of cardiac pacemaker; Z79.01 Long term (current) use of anticoagulants; Z79.82 Long term (current) use of aspirin
CPT/HCPCS: 93005; J3010; J9201

== ENCOUNTER → 2020-07-18 09:44 | Outpatient (BNVA) | payer MEDICARE, SELFPAY | PROVIDERS: PCP Internal Medicine; Visit Provider Urology | DX: N13.30 Unspecified hydronephrosis (principal); C67.9 Malignant neoplasm of bladder, unspecified | CPT/HCPCS: 52310; 99212 ==

== ENCOUNTER → 2020-07-26 08:22 | Outpatient (REF) | payer MEDICARE, SELFPAY ==
--- NOTE | ~2020-07-26 | NM_ITS ---
Lexiscan Myocardial perfusion study Indication: Coronary artery disease, atrial fibrillation, assess for ischemia Technique: The patient was brought in for a Lexiscan perfusion study on 07/26/2020 and was injected 0.4 mg of Lexiscan intravenously. Within a minute of this injection 30 mCi of sestamibi was given intravenously. Images were obtained using the SPECT gamma camera interlaced with the gating device. Images were obtained in supine position. Resting perfusion study was performed on 07/27/2020. Patient was administered 30 mCi of sestamibi intravenously at rest. Images were then obtained in supine position. Total DLP 98mGy-cm. Images were processed with the software and compared side to side in short axis, horizontal long axis and vertical long axis views. Findings: Raw acquisition was reviewed. The stress perfusion study showed markedly reduced tracer uptake along the inferior wall. With CT attenuation correction, there seems to be significant improvement and hence could be from diaphragmatic attenuation artifact. The gated study shows normal LV systolic function with calculated LVEF of 54%. LV cavity is normal in size. The gated study shows diminished wall thickening and contractility in the inferior wall. Resting study shows markedly decreased tracer uptake along the inferior wall. Gating at rest reveals ejection fraction at 53%. The findings are consistent with fixed inferior wall defect without any significant reversibility. However, there is improvement with CT attenuation correction which could indicate components of diaphragmatic artifact. NM/NM zachary perf SPECT rest & str Impression: 1. Myocardial perfusion imaging study shows no definite ischemia. Fixed inferior wall defect noted, with improvement during CT attenuation correction. Hence could be related to diaphragmatic artifact. However there is also history of RCA stenting and hence cannot definitively exclude nontransmural infarct components. 2. Gated LVEF is 54% during stress and 53% during rest. 3. Transient ischemic dilatation not present. EKG component of the test reported separately.
--- NOTE | 2020-07-26 08:24 | CA_ITS ---
Acquisition Time: 2020-07-26 08:32:31 Total Exercise Time: 00:02:00 Test Indications: AFIB Medications: SEE CHART Protocol: LEXISCAN Max HR: 105 BPM 71% of Pred: 147 BPM Max BP: 184/080 mmHG Max Work Load: 1.6 METS Pharmacological stress test with Lexiscan injection, while walking on treadmill, without anginal symptoms, with isolated pVCs, ventricular cuplets, with normotensive response to injection, with nonspecific ST abnormality at baseline then with further ST depressions leads II, aVF, V4, V5 and ST elevation aVR post Lexiscan injection with gradual improvement back to baseline. Nuclear images pending. test reviewed with Dr Anderson. Referred By: Andres Trinidad Overread By: DA JOHNS
== END ==
LOC: HO.CARD 08:22
PROVIDERS: Visit Provider Internal Medicine Cardiovascular Disease
DX: Z01.811 Encounter for preprocedural respiratory examination (principal); I48.0 Paroxysmal atrial fibrillation; I25.10 Atherosclerotic heart disease of native coronary artery without angina pectoris
CPT/HCPCS: 78452; 93016; 93017; 93018; A9500; J0280; J2785

== ENCOUNTER → 2020-08-15 08:21 | Outpatient (BNVA) | payer MEDICARE, SELFPAY | PROVIDERS: PCP Internal Medicine; Referring Provider Internal Medicine; Visit Provider Internal Medicine Cardiovascular Disease | DX: Z45.018 Encounter for adjustment and management of other part of cardiac pacemaker (principal); Z01.810 Encounter for preprocedural cardiovascular examination; I25.10 Atherosclerotic heart disease of native coronary artery without angina pectoris; I48.0 Paroxysmal atrial fibrillation; Z95.0 Presence of cardiac pacemaker | CPT/HCPCS: 99212 ==

== ENCOUNTER 2020-08-30 07:19 | Outpatient (REF) | payer MEDICARE, SELFPAY ==
[2020-08-30 11:25] LABS: MANUAL DIFF FLAG NO
[2020-08-30 12:05] LABS: Basophils Percent Auto 0.4 % (0-2); Eosinophils Absolute Auto 0.2 X10*3/uL (0.0-0.4); Eosinophils Percent Auto 3.2 % (0-4); Hemoglobin 10.8 g/dl (14.0-18.0); Imm Gran Abs Auto 0.02 X10*3/uL (0.00-0.03); Imm Gran Pct Auto 0.4 % (0.0-0.4); Lymphocytes Absolute Auto 0.7 X10*3/uL (1.2-4.9); Lymphocytes Percent Auto 13.7 % (20-40); Mean Corpuscular HGB Conc 33.8 g/dl (31.0-36.0); Mean Corpuscular Hemoglobin 32.3 pg (27.0-33.0); Mean Corpuscular Volume 95.8 fL (80-98); Monocytes Absolute Auto 0.6 X10*3/uL (0.1-1.2); Monocytes Percent Auto 11.5 % (2-11); Neutrophils Absolute Auto 3.6 X10*3/uL (2.0-8.3); Neutrophils Percent Auto 70.8 % (45-73); Platelet Count 206 X10*3/uL (160-400); Red Blood Count 3.34 X10*6/uL (4.60-5.80); Red Cell Distribution Width 15.8 % (11.0-16.0); White Blood Count 5.1 X10*3/uL (4.8-10.8)
[2020-08-30 12:09] LABS: Alanine Aminotransferase 9 U/L (0-40); Albumin Level 3.5 g/dL (3.5-5.0); Alkaline Phosphatase 91 U/L (39-117); Anion Gap 11 (12-20); Aspartate Amino Transferase 12 U/L (5-37); Bilirubin Total 1.1 mg/dL (0.0-1.0); Blood Urea Nitrogen 16 mg/dL (9-16); Calcium 8.4 mg/dL (8.4-10.2); Carbon Dioxide 25 mmol/L (22-29); Chloride 110 mmol/L (96-108); Estimated Glomerular Filt Rate 60; Glucose Random 103 mg/dL (60-115); Potassium 4.1 mmol/L (3.3-5.1); Sodium 142 mmol/L (135-145); Total Protein 5.9 g/dL (6.5-8.0)
== END 2020-08-30 07:20 | disposition home or self-care (01) ==
LOC: HO.HMGCLDS 07:19
PROVIDERS: PCP Internal Medicine; Visit Provider Internal Medicine Medical Oncology
DX: C68.9 Malignant neoplasm of urinary organ, unspecified (principal)
CPT/HCPCS: 36415; 80053; 85025

== ENCOUNTER 2020-09-08 06:51 | Outpatient (REF) | payer MEDICARE, SELFPAY ==
[2020-09-08 11:29] LABS: MANUAL DIFF FLAG NO
[2020-09-08 11:36] LABS: Basophils Percent Auto 0.4 % (0-2); Eosinophils Absolute Auto 0.2 X10*3/uL (0.0-0.4); Eosinophils Percent Auto 3.6 % (0-4); Hematocrit 31.7 % (42-52); Hemoglobin 10.8 g/dl (14.0-18.0); Imm Gran Abs Auto 0.01 X10*3/uL (0.00-0.03); Imm Gran Pct Auto 0.2 % (0.0-0.4); Lymphocytes Absolute Auto 0.5 X10*3/uL (1.2-4.9); Lymphocytes Percent Auto 10.7 % (20-40); Mean Corpuscular HGB Conc 34.1 g/dl (31.0-36.0); Mean Corpuscular Hemoglobin 32.5 pg (27.0-33.0); Mean Corpuscular Volume 95.5 fL (80-98); Mean Platelet Volume 11.7 fL (9.4-12.4); Monocytes Absolute Auto 0.2 X10*3/uL (0.1-1.2); Monocytes Percent Auto 4.6 % (2-11); Neutrophils Percent Auto 80.5 % (45-73); Platelet Count 203 X10*3/uL (160-400); Red Blood Count 3.32 X10*6/uL (4.60-5.80); Red Cell Distribution Width 14.7 % (11.0-16.0)
[2020-09-08 12:03] LABS: Alanine Aminotransferase 11 U/L (0-40); Albumin Level 3.6 g/dL (3.5-5.0); Alkaline Phosphatase 84 U/L (39-117); Anion Gap 13 (12-20); Aspartate Amino Transferase 14 U/L (5-37); Bilirubin Total 1.7 mg/dL (0.0-1.0); Blood Urea Nitrogen 26 mg/dL (9-16); Calcium 8.6 mg/dL (8.4-10.2); Carbon Dioxide 25 mmol/L (22-29); Chloride 106 mmol/L (96-108); Estimated Glomerular Filt Rate 49; Glucose Random 98 mg/dL (60-115); Potassium 3.7 mmol/L (3.3-5.1); Sodium 140 mmol/L (135-145); Total Protein 5.9 g/dL (6.5-8.0)
== END 2020-09-08 06:52 | disposition home or self-care (01) ==
LOC: HO.HMGCLDS 06:51
PROVIDERS: PCP Internal Medicine; Visit Provider Internal Medicine Medical Oncology
DX: C68.9 Malignant neoplasm of urinary organ, unspecified (principal)
CPT/HCPCS: 36415; 80053; 85025

== ENCOUNTER 2020-09-25 06:43 | Outpatient (REF) | payer MEDICARE, SELFPAY ==
[2020-09-25 11:21] LABS: MANUAL DIFF FLAG NO
[2020-09-25 11:48] LABS: Alanine Aminotransferase 6 U/L (0-40); Albumin Level 3.5 g/dL (3.5-5.0); Alkaline Phosphatase 87 U/L (39-117); Anion Gap 14 (12-20); Aspartate Amino Transferase 12 U/L (5-37); Bilirubin Total 0.9 mg/dL (0.0-1.0); Blood Urea Nitrogen 29 mg/dL (9-16); Calcium 8.2 mg/dL (8.4-10.2); Carbon Dioxide 24 mmol/L (22-29); Chloride 108 mmol/L (96-108); Estimated Glomerular Filt Rate 34; Glucose Random 96 mg/dL (60-115); Sodium 142 mmol/L (135-145); Total Protein 5.9 g/dL (6.5-8.0)
[2020-09-25 11:50] LABS: Basophils Percent Auto 0.3 % (0-2); Eosinophils Absolute Auto 0.1 X10*3/uL (0.0-0.4); Eosinophils Percent Auto 2.3 % (0-4); Hematocrit 26.8 % (42-52); Hemoglobin 9.2 g/dl (14.0-18.0); Imm Gran Abs Auto 0.01 X10*3/uL (0.00-0.03); Imm Gran Pct Auto 0.3 % (0.0-0.4); Lymphocytes Absolute Auto 0.6 X10*3/uL (1.2-4.9); Lymphocytes Percent Auto 18.1 % (20-40); Mean Corpuscular HGB Conc 34.3 g/dl (31.0-36.0); Mean Corpuscular Hemoglobin 32.1 pg (27.0-33.0); Mean Corpuscular Volume 93.4 fL (80-98); Monocytes Absolute Auto 0.5 X10*3/uL (0.1-1.2); Monocytes Percent Auto 15.5 % (2-11); Neutrophils Percent Auto 63.5 % (45-73); Platelet Count 202 X10*3/uL (160-400); Red Blood Count 2.87 X10*6/uL (4.60-5.80); Red Cell Distribution Width 13.8 % (11.0-16.0); White Blood Count 3.1 X10*3/uL (4.8-10.8)
== END 2020-09-25 06:44 | disposition home or self-care (01) ==
LOC: HO.HMGCLDS 06:43
PROVIDERS: PCP Internal Medicine; Referring Provider Internal Medicine Cardiovascular Disease; Visit Provider Internal Medicine Medical Oncology
DX: C68.9 Malignant neoplasm of urinary organ, unspecified (principal)
CPT/HCPCS: 36415; 80053; 85025

== ENCOUNTER 2020-10-03 06:55 | Outpatient (REF) | payer MEDICARE, SELFPAY ==
[2020-10-03 11:36] LABS: Basophils Percent Auto 0.7 % (0-2); Eosinophils Percent Auto 0.7 % (0-4); Hematocrit 25.9 % (42-52); Hemoglobin 8.8 g/dl (14.0-18.0); Imm Gran Abs Auto 0.01 X10*3/uL (0.00-0.03); Imm Gran Pct Auto 0.7 % (0.0-0.4); Lymphocytes Absolute Auto 0.4 X10*3/uL (1.2-4.9); Lymphocytes Percent Auto 30.8 % (20-40); MANUAL DIFF FLAG SCAN; Mean Corpuscular Hemoglobin 31.8 pg (27.0-33.0); Mean Corpuscular Volume 93.5 fL (80-98); Mean Platelet Volume 11.7 fL (9.4-12.4); Monocytes Absolute Auto 0.1 X10*3/uL (0.1-1.2); Monocytes Percent Auto 8.4 % (2-11); Neutrophils Absolute Auto 0.8 X10*3/uL (2.0-8.3); Neutrophils Percent Auto 58.7 % (45-73); Platelet Count 269 X10*3/uL (160-400); Red Blood Count 2.77 X10*6/uL (4.60-5.80); Red Cell Distribution Width 13.3 % (11.0-16.0); SCAN SMEAR FLAG 1
[2020-10-03 11:40] LABS: White Blood Count 1.4 X10*3/uL (4.8-10.8)
[2020-10-03 11:49] LABS: Anion Gap 11 (12-20); Blood Urea Nitrogen 28 mg/dL (9-16); Calcium 8.4 mg/dL (8.4-10.2); Carbon Dioxide 26 mmol/L (22-29); Chloride 107 mmol/L (96-108); Estimated Glomerular Filt Rate 41; Glucose Random 98 mg/dL (60-115); Potassium 3.9 mmol/L (3.3-5.1); Sodium 140 mmol/L (135-145)
[2020-10-03 12:00] LABS: Alanine Aminotransferase 10 U/L (0-40); Albumin Level 3.5 g/dL (3.5-5.0); Alkaline Phosphatase 79 U/L (39-117); Anion Gap 12 (12-20); Aspartate Amino Transferase 12 U/L (5-37); Bilirubin Total 1.2 mg/dL (0.0-1.0); Blood Urea Nitrogen 29 mg/dL (9-16); Calcium 8.6 mg/dL (8.4-10.2); Carbon Dioxide 25 mmol/L (22-29); Chloride 108 mmol/L (96-108); Estimated Glomerular Filt Rate 41; Glucose Random 100 mg/dL (60-115); Potassium 3.9 mmol/L (3.3-5.1); Sodium 141 mmol/L (135-145); Total Protein 5.8 g/dL (6.5-8.0)
[2020-10-03 12:42] LABS: SLIDE REVIEW VERIFIED
== END 2020-10-03 06:56 | disposition home or self-care (01) ==
LOC: HO.HMGCLDS 06:55
PROVIDERS: PCP Internal Medicine; Referring Provider Internal Medicine Cardiovascular Disease; Visit Provider Internal Medicine Medical Oncology
DX: I25.10 Atherosclerotic heart disease of native coronary artery without angina pectoris (principal); N18.9 Chronic kidney disease, unspecified; C68.9 Malignant neoplasm of urinary organ, unspecified
CPT/HCPCS: 36415; 80048; 80053; 82248; 85025

== ENCOUNTER → 2020-12-07 14:43 | Outpatient (BNVA) | payer MEDICARE, SELFPAY | PROVIDERS: PCP Internal Medicine; Referring Provider Internal Medicine; Visit Provider Nurse Practitioner Family | DX: Z01.810 Encounter for preprocedural cardiovascular examination (principal); I25.10 Atherosclerotic heart disease of native coronary artery without angina pectoris; I48.0 Paroxysmal atrial fibrillation; I49.5 Sick sinus syndrome; C67.9 Malignant neoplasm of bladder, unspecified; Z95.0 Presence of cardiac pacemaker | CPT/HCPCS: 93005; 99212 ==

== ENCOUNTER 2020-12-21 08:41 | Outpatient (REF) | payer MEDICARE, SELFPAY ==
[2020-12-21 11:20] LABS: MANUAL DIFF FLAG NO
[2020-12-21 11:22] LABS: Basophils Percent Auto 0.3 % (0-2); Eosinophils Absolute Auto 0.1 X10*3/uL (0.0-0.4); Eosinophils Percent Auto 1.8 % (0-4); Hemoglobin 11.3 g/dl (14.0-18.0); Imm Gran Abs Auto 0.02 X10*3/uL (0.00-0.03); Imm Gran Pct Auto 0.3 % (0.0-0.4); Lymphocytes Absolute Auto 0.8 X10*3/uL (1.2-4.9); Lymphocytes Percent Auto 13.5 % (20-40); Mean Corpuscular HGB Conc 34.2 g/dl (31.0-36.0); Mean Corpuscular Hemoglobin 31.4 pg (27.0-33.0); Mean Corpuscular Volume 91.7 fL (80-98); Mean Platelet Volume 11.6 fL (9.4-12.4); Monocytes Absolute Auto 0.5 X10*3/uL (0.1-1.2); Monocytes Percent Auto 8.7 % (2-11); Neutrophils Absolute Auto 4.6 X10*3/uL (2.0-8.3); Neutrophils Percent Auto 75.4 % (45-73); Platelet Count 196 X10*3/uL (160-400); Red Cell Distribution Width 13.1 % (11.0-16.0); White Blood Count 6.1 X10*3/uL (4.8-10.8)
[2020-12-21 11:39] LABS: Anion Gap 11 (12-20); Blood Urea Nitrogen 31 mg/dL (9-16); Calcium 8.6 mg/dL (8.4-10.2); Carbon Dioxide 25 mmol/L (22-29); Chloride 107 mmol/L (96-108); Estimated Glomerular Filt Rate 31; Glucose Fasting 111 mg/dL (60-99); Sodium 139 mmol/L (135-145)
== END 2020-12-21 08:42 | disposition home or self-care (01) ==
LOC: HO.HMGCLDS 08:41
PROVIDERS: PCP Internal Medicine; Visit Provider Urology
DX: C67.9 Malignant neoplasm of bladder, unspecified (principal)
CPT/HCPCS: 36415; 80048; 85025

== ENCOUNTER → 2021-03-07 10:36 | Outpatient (BNVA) | payer MEDICARE, SELFPAY | PROVIDERS: PCP Internal Medicine; Referring Provider Internal Medicine; Visit Provider Internal Medicine Cardiovascular Disease | DX: I48.0 Paroxysmal atrial fibrillation (principal); I25.10 Atherosclerotic heart disease of native coronary artery without angina pectoris; Z79.01 Long term (current) use of anticoagulants; Z45.018 Encounter for adjustment and management of other part of cardiac pacemaker | CPT/HCPCS: 99212 ==

== ENCOUNTER → 2021-04-03 08:36 | Outpatient (BNVA) | payer MEDICARE, SELFPAY | PROVIDERS: PCP Internal Medicine; Visit Provider Urology | DX: C67.9 Malignant neoplasm of bladder, unspecified (principal) | CPT/HCPCS: 99212 ==

== ENCOUNTER → 2021-04-04 08:27 | Outpatient (BNVA) | payer MEDICARE, SELFPAY | PROVIDERS: PCP Internal Medicine; Referring Provider Internal Medicine; Visit Provider Internal Medicine Cardiovascular Disease | DX: Z45.018 Encounter for adjustment and management of other part of cardiac pacemaker (principal); I48.0 Paroxysmal atrial fibrillation; I25.10 Atherosclerotic heart disease of native coronary artery without angina pectoris | CPT/HCPCS: 99212 ==

== ENCOUNTER → 2021-07-03 12:10 | Outpatient (BNVA) | payer MEDICARE, SELFPAY | PROVIDERS: PCP Internal Medicine; Referring Provider Internal Medicine; Visit Provider Internal Medicine Cardiovascular Disease | DX: Z45.018 Encounter for adjustment and management of other part of cardiac pacemaker (principal); I48.0 Paroxysmal atrial fibrillation; I25.10 Atherosclerotic heart disease of native coronary artery without angina pectoris | CPT/HCPCS: 93005; 93280; 99212 ==

== ENCOUNTER 2021-09-27 06:02 | Outpatient (REF) | payer MEDICARE, SELFPAY ==
[2021-09-27 11:38] LABS: Blood Urea Nitrogen 26 mg/dL (9-16); Estimated Glomerular Filt Rate 43
== END 2021-09-27 06:03 | disposition home or self-care (01) ==
LOC: HO.HMGCLDS 06:02
PROVIDERS: Absent Provider Urology; PCP Internal Medicine; Visit Provider Urology
DX: C67.9 Malignant neoplasm of bladder, unspecified (principal)
CPT/HCPCS: 36415; 82565; 84520

== ENCOUNTER 2021-10-02 08:14 | Outpatient (REF) | payer MEDICARE, SELFPAY ==
[2021-10-08 12:34] LABS: Urine Cytology See Pathology rpt
== END 2021-10-02 08:15 | disposition home or self-care (01) ==
LOC: HO.LAB 08:14
PROVIDERS: PCP Internal Medicine; Visit Provider Urology
DX: C67.9 Malignant neoplasm of bladder, unspecified (principal)
CPT/HCPCS: 88112; 99212

== ENCOUNTER → 2021-10-09 08:12 | Outpatient (BNVA) | payer MEDICARE, SELFPAY | PROVIDERS: PCP Internal Medicine; Referring Provider Internal Medicine; Visit Provider Internal Medicine Cardiovascular Disease | DX: R94.31 Abnormal electrocardiogram [ECG] [EKG] (principal) | CPT/HCPCS: 93005 ==

== ENCOUNTER 2021-10-10 07:45 | Outpatient (REF) | payer MEDICARE, SELFPAY ==
--- NOTE | ~2021-10-10 | CT_ITS ---
EXAMINATION: CT ABDOMEN AND PELVIS WITHOUT AND WITH CONTRAST CLINICAL INFORMATION: Malignant neoplasm of bladder. COMPARISON: CT abdomen and pelvis without contrast 04/20/2020. TECHNIQUE: Noncontrast CT of the abdomen and pelvis is performed followed by split bolus contrast-enhanced images using 85 mL Omnipaque 350 contrast. Postcontrast imaging is performed during the combined nephrogram and excretion phase. Sagittal and coronal reformatted images were obtained on the technologist's workstation for both the precontrast and postcontrast phases. This CT examination was performed using dose optimization techniques as appropriate, variously including the following: *Automated exposure control *Adjustment of mA and/or kV according to patient size (this includes techniques or standardized protocols for targeted exams where dose is matched to indication/reason for exam; i.e. extremities or head) *Use of iterative reconstruction technique DLP: 807 mGy-cm FINDINGS: LUNG BASES: The visualized lung bases are unremarkable. LIVER, GALLBLADDER, AND BILIARY TREE: The liver is normal in size, shape, and attenuation. No focal hepatic lesion or biliary ductal dilatation is present. The gallbladder is unremarkable with no evidence of radiopaque gallstones, gallbladder wall thickening, or obvious pericholecystic inflammatory changes. PANCREAS: Unremarkable. SPLEEN: Unremarkable. ADRENAL GLANDS: Unremarkable. KIDNEYS AND URETERS: On noncontrast CT, there are no radiopaque renal calculi seen. Postcontrast, there are bilateral symmetrical nephrograms with normal cortical thickness. There is a nonenhancing 1.9 x 1.7 cm lower pole cyst right kidney. There is good opacification of bilateral calyces and extrarenal pelvises. Mild prominence of bilateral proximal ureters is an expected finding from an ileal conduit following cystectomy. BLADDER: The bladder has been surgically removed. There is an ileal conduit in the right lower quadrant. It exhibits via right lower quadrant ileostomy. GASTROINTESTINAL TRACT: There is moderate scattered stool, gas and diverticula in the colon without any significant distention. There is no evidence of diverticulitis. Mild prominence of small bowel loops with fluid in the pelvic region but no suspicion for obstruction. ABDOMINAL WALL: There is a right lower quadrant ileostomy with para-ileostomy herniation of colon. LYMPH NODES: No abnormal sized pelvic or retroperitoneal lymph nodes seen. VASCULAR: There is atherosclerotic calcification abdominal aorta without aneurysmal dilatation. PELVIC VISCERA: There is a small hypodensity with irregular shaped wall, likely a small lymphocele or seroma measuring 2.7 x 2.0 cm in the left pelvis axial image 54/8. There is mild presacral thickening, likely postsurgical. No free fluid. No abnormal lymph nodes. OSSEUS STRUCTURES: No aggressive, lytic or sclerotic process seen. CT/CT urogram IMPRESSION: Post-cystectomy and reconstruction of ileal conduit extending through the abdominal wall as right lower quadrant ileostomy, new since the last study 2020. Mild prominence of ureters are an expected finding. There is para-ileostomy herniation of colon. There is a small seroma or lymphocele in the left pelvis with presacral postsurgical changes. Colonic diverticulosis without diverticulitis. Mild constipation.
[2021-10-10] MEDS: iohexoL 350 MG/ML 100 ML INFUS..BTL 85 ML IV (08:38)
== END 2021-10-10 07:46 | disposition home or self-care (01) ==
LOC: HO.CT 07:45
PROVIDERS: PCP Internal Medicine; Visit Provider Urology
DX: C67.9 Malignant neoplasm of bladder, unspecified (principal)
CPT/HCPCS: 74178; Q9967

== ENCOUNTER 2021-10-23 09:07 | Outpatient (REF) | payer MEDICARE, SELFPAY ==
[2021-10-23 09:51] LABS: Anion Gap 14 (12-20); Blood Urea Nitrogen 20 mg/dL (9-16); Calcium 9.4 mg/dL (8.4-10.2); Carbon Dioxide 26 mmol/L (22-29); Chloride 106 mmol/L (96-108); Estimated Glomerular Filt Rate 43; Glucose Random 109 mg/dL (60-115); Potassium 4.1 mmol/L (3.3-5.1); Sodium 142 mmol/L (135-145)
[2021-10-23 11:09] LABS: Creatinine Urine 128.65 mg/dL; Total Protein Urine Random 26 mg/dL (<12)
== END 2021-10-23 09:08 | disposition home or self-care (01) ==
LOC: HO.LAB 09:07
PROVIDERS: PCP Internal Medicine; Visit Provider Internal Medicine Hypertension Specialist
DX: N18.31 Chronic kidney disease, stage 3a (principal)
CPT/HCPCS: 36415; 80048; 84156

== ENCOUNTER 2021-11-01 07:15 | Outpatient (REF) | payer MEDICARE, SELFPAY ==
[2021-11-01 10:43] LABS: Total Volume 24 Hour Urine 2800 mL
== END 2021-11-01 07:16 | disposition home or self-care (01) ==
LOC: HO.LNP 07:15
PROVIDERS: Visit Provider Internal Medicine Hypertension Specialist
DX: N18.31 Chronic kidney disease, stage 3a (principal)
CPT/HCPCS: 82570

== ENCOUNTER 2022-01-01 08:28 | Outpatient (REF) | payer MEDICARE, SELFPAY ==
[2022-01-01 10:45] LABS: Hematocrit 37.8 % (42.0-52.0); Hemoglobin 12.4 g/dl (14.0-18.0); Mean Corpuscular HGB Conc 32.8 g/dl (31.0-36.0); Mean Corpuscular Hemoglobin 31.4 pg (27.0-33.0); Mean Corpuscular Volume 95.7 fL (80.0-98.0); Mean Platelet Volume 11.1 fL (9.4-12.4); Platelet Count 255 X10*3/uL (160-400); Red Blood Count 3.95 X10*6/uL (4.60-5.80); Red Cell Distribution Width 13.3 % (11.0-16.0); White Blood Count 19.1 X10*3/uL (4.8-10.8)
[2022-01-01 11:13] LABS: Anion Gap 14 (12-20); Blood Urea Nitrogen 24 mg/dL (9-16); Calcium 9.1 mg/dL (8.4-10.2); Carbon Dioxide 25 mmol/L (22-29); Chloride 105 mmol/L (96-108); Estimated Glomerular Filt Rate 43; Glucose Random 127 mg/dL (60-115); Potassium 4.2 mmol/L (3.3-5.1); Sodium 140 mmol/L (135-145)
== END 2022-01-01 08:29 | disposition home or self-care (01) ==
LOC: HO.LAB 08:28
PROVIDERS: PCP Internal Medicine; Referring Provider Internal Medicine; Visit Provider Internal Medicine Cardiovascular Disease
DX: I48.0 Paroxysmal atrial fibrillation (principal); I77.9 Disorder of arteries and arterioles, unspecified; R42 Dizziness and giddiness; I25.10 Atherosclerotic heart disease of native coronary artery without angina pectoris; Z95.0 Presence of cardiac pacemaker
CPT/HCPCS: 36415; 80048; 85027; 93005; 93280; 99212

== ENCOUNTER → 2022-01-09 07:12 | Outpatient (REF) | payer MEDICARE, SELFPAY ==
--- NOTE | 2022-01-09 07:16 | CA_ITS ---
Transthoracic Echocardiogram Patient (Last, First, Middle): Martin Charles J Gender: Male Date of : 1945 Age: 76 Procedure Date: 01/09/2022 Procedure Type: Transthoracic Echocardiogram Location: OP Height: 177.8 cm Weight: 79.38 kg BSA: 1.97 m2 Heart Rate: bpm BP: 160 / 70 mmHg [employer]: TO/VH Referring MD: Andres Trinidad MD Engineering Specialist Technician: Andres Trinidad MD Symptoms: I48.0 - Paroxysmal atrial fibrillation Study Quality: Fair ECG Rhythm: Sinus Conclusions: - 1. [id number] LV systolic dysfunction with LVEF of 40-45% with pseudonormal filling pattern with regional wall motion abnormality consistent with ischemic cardiomyopathy 2. Mildly dilated left atrium 3. Mild aortic and mitral regurgitation 4. Mildly dilated ascending aorta at 4.1 cm 5. Normal RV systolic pressure 6. No gross pericardial effusion Findings Left Ventricle Normal left ventricular cavity size. There is mildly increased left ventricular wall thickness. The left ventricular systolic function is mild to moderately decreased. The visually estimated ejection fraction is between 40-45%. Spectral Doppler is indicative of a pseudonormal filling pattern. E/E prime ratio is between 8 and 15 consistent with indeterminate filling pressures. Wall Motion Rest Echo Findings The mid inferior, mid inferoseptal, and basal inferolateral segments are hypokinetic. The basal inferior and basal inferoseptal segments are akinetic. All other scored wall segments showed normal motion. Right Ventricle Mildly increased right ventricular cavity size. There is normal right ventricular systolic function. There is a pacemaker wire seen in the right ventricle. Atria The left atrium is mildly dilated. The right atrium is normal in size. A pacemaker wire is identified in the right atrium. Aortic Valve There is mild calcification of the aortic valve. There is no aortic valve stenosis. There is mild aortic valve regurgitation. Mitral Valve There is mild anterior and posterior mitral leaflet thickening. There is mild mitral valve regurgitation. There is no mitral valve stenosis. Pulmonic Valve The pulmonic valve is likely normal. There is trace pulmonic valve regurgitation. Tricuspid Valve Normal tricuspid valve structure. There is trace tricuspid valve regurgitation. The right ventricular systolic pressure is normal. The right ventricular systolic pressure is 28 mmHg. Normal right atrial pressure. There is no evidence of pulmonary hypertension. Great Vessels The pulmonary artery was not well visualized. There is mild dilatation of the ascending aorta measuring 4.10 cm. Venous The inferior vena cava is normal in size and collapses greater than 50% with inspiration. Pericardium/Pleural There is no evidence of pericardial effusion. Prior Study Comparison Changes noted compared to prior study dated: 01/27/2020. LV systolic function is reduced. Ascending aorta is mildly dilated Measurements 2D Linear Measurements IVSd: 1.28 0.6-0.9/0.6-1.0 cm LVIDd: 5.52 3.9-5.3/4.2-5.9 cm LVIDd Index: 2.80 2.4-3.2/2.2-3.1 cm/m2 LVIDs: 4.35 2.0-3.6 cm LVPWd: 1.00 0.7-1.1 cm LA Diam: 4.00 2.7-3.8/3.0-4.0 cm LAIDs Index: 2.03 1.5-2.3 cm/m2 LV Mass: 318.61 67-162/88-224 g LV Mass Index: 161.73 43-95/49-115 g/m2 LVOT Diam: 2.70 3.0+(-)1.3 cm 2D Systolic Function EF 4C: 37.20 >55% EF 2C: 40.10 >55% EF BiP: 40.90 >55% Mitral Valve MV Pk E: 0.65 MV PK A: 0.35 MV Decel Time: 233.00 E/A: 1.90 E'Lateral: 9.25 E'Medial: 4.68 E/E' Med: 13.90 E/E' Lat: 7.00 PHT: 68.00 MVA PHT: 3.24 Decel Wagoner: 2.79 Aortic Valve AoV Pk Lior: 1.31 AoV Mn Lior: 0.96 AoV VTI: 0.31 AoV Pk Grad: 7.00 Aov Mn Grad: 5.00 KELSEY Cont.VTI: 3.04 AI Pk Lior: 4.78 AI Wagoner: 3.47 LVOT LVOT Pk Lior: 0.67 LVOT Mn Lior: 0.41 LVOT VTI: 0.16 LVOT Pk Grad: 2.00 LVOT Mn Grad: 1.00 LVOT Diam: 2.70 LVOT Area: 5.73 Diastolic Function MV Pk E: 0.65 MV Pk A: 0.35 E/A: 1.90 E'Medial: 4.68 E/E' Med: 13.90 E' Laterial: 9.25 E/E' Lat: 7.00 Right Ventricle TAPSE (mm): 27.00 TVS' Lior: 11.00 Tricuspid Valve TR Pk Lior: 2.48 TR Pk Grad: 25.00 RA Press: 3.00 RVSP: 28.00 Great Vessels Aorta Sinus of Valsalva: 3.82 2.0-3.5 cm Ao Asc: 4.10 2.1-3.4 cm Updated in Other Vendor System with Status of Final Andres Trinidad MD electronically signed on 01/11/2022 8:10:23 AM with status of Final
== END ==
LOC: HO.CARD 07:12
PROVIDERS: PCP Internal Medicine; Visit Provider Internal Medicine Cardiovascular Disease
DX: I48.0 Paroxysmal atrial fibrillation (principal)
CPT/HCPCS: 93306

== ENCOUNTER 2022-01-24 08:35 | Outpatient (REF) | payer MEDICARE, SELFPAY ==
--- NOTE | ~2022-01-24 | US_ITS ---
EXAMINATION: US EXTRACRANIAL CAROTID DUPLEX, BILATERAL CLINICAL INFORMATION: Coronary artery disease, hypertension COMPARISON: 03/15/2020 TECHNIQUE: Real-time ultrasound and Doppler techniques (integrating B-mode 2-D vascular images, Doppler spectral analysis and color-flow Doppler imaging) were utilized to interrogate the extracranial carotid arteries, the vertebral arteries and proximal subclavian arteries bilaterally. The degree of stenosis is determined by criteria similar to NASCET. FINDINGS: Right Side: 1. There is mild atherosclerotic plaque seen in the bifurcation/proximal ICA region. 2. The common carotid artery PSV proximally is 77.8 cm/s and distally 76.2 cm/s. 3. The proximal internal carotid artery velocities are 73.3 cm/s systolic and 17 cm/s diastolic. 4. The proximal external carotid artery PSV is 83.3 cm/s. 5. The vertebral artery shows antegrade flow. 6. The subclavian artery waveforms are normal. Left Side: 1. There is moderate atherosclerotic plaque seen in the bifurcation/proximal ICA region. 2. The common carotid artery PSV proximally is 99 cm/s and distally 71.5 cm/s. 3. The proximal internal carotid artery velocities are 82 cm/s systolic and 23.8 cm/s diastolic. 4. The proximal external carotid artery PSV is 213 cm/s. 5. The vertebral artery shows antegrade flow. 6. The subclavian artery waveforms are normal. US/US carotid duplex BI IMPRESSION: 1. RIGHT: Minimal, non-hemodynamically significant stenosis of the proximal right internal carotid artery corresponding to a 0-49% stenosis by velocity criteria. 2. LEFT: Minimal, non-hemodynamically significant stenosis of the proximal left internal carotid artery corresponding to a 0-49% stenosis by velocity criteria. 3. There is no change in the category severity of disease when compared to the previous study dated 03/15/2020.
[2022-01-24 11:42] LABS: Anion Gap 12 (12-20); Blood Urea Nitrogen 19 mg/dL (9-16); Carbon Dioxide 26 mmol/L (22-29); Chloride 102 mmol/L (96-108); Estimated Glomerular Filt Rate 49; Glucose Random 146 mg/dL (60-115); Potassium 3.9 mmol/L (3.3-5.1); Sodium 136 mmol/L (135-145)
== END 2022-01-24 08:36 | disposition home or self-care (01) ==
LOC: HO.HMGCX 08:35
PROVIDERS: Absent Provider Internal Medicine Hypertension Specialist; PCP Internal Medicine; Visit Provider Internal Medicine Cardiovascular Disease
DX: I77.9 Disorder of arteries and arterioles, unspecified (principal); I25.10 Atherosclerotic heart disease of native coronary artery without angina pectoris; I12.9 Hypertensive chronic kidney disease with stage 1 through stage 4 chronic kidney disease, or unspecified chronic kidney disease; N18.31 Chronic kidney disease, stage 3a
CPT/HCPCS: 36415; 80048; 93880

== ENCOUNTER 2022-03-07 08:44 | Outpatient (REF) | payer MEDICARE, SELFPAY ==
--- NOTE | ~2022-03-07 | XR_ITS ---
EXAMINATION: XR CHEST CLINICAL INFORMATION: Leukocytosis COMPARISON: 09/05/2018 TECHNIQUE: 2 views of the chest were obtained. FINDINGS: Lungs are well expanded and clear. No pleural effusion. Cardiac silhouette has normal size and contour. Pulmonary vascular pattern is normal. Cardiac pacemaker with intact transvenous leads extending to level the right atrium and right ventricle. Mild atherosclerotic calcification of the aorta. The visualized bones are intact. XR/XR chest 2V IMPRESSION: No evidence of pneumonia. No acute cardiopulmonary abnormality.
== END 2022-03-07 08:45 | disposition home or self-care (01) ==
LOC: HO.HMGCX 08:44
PROVIDERS: PCP Internal Medicine; Visit Provider Internal Medicine
DX: D72.829 Elevated white blood cell count, unspecified (principal)
CPT/HCPCS: 71046

== ENCOUNTER → 2022-03-15 09:39 | Outpatient (REF) | payer MEDICARE, SELFPAY ==
--- NOTE | ~2022-03-15 | NM_ITS ---
EXAMINATION: NM BONE SCAN OF THE WHOLE BODY CLINICAL INFORMATION: Malignant neoplasm of bladder. Pelvic/perineal pain. COMPARISON: The previous bone scan dated 12/20/2016 is available for comparison. Radiographs of the chest dated 03/07/2022 are available for comparison. CT urogram dated 10/10/2021 is available for comparison. TECHNIQUE: Multiple gamma scintillation camera images of the whole body were performed 3 hours following the intravenous administration of 28 mCi Tc-99m MDP. FINDINGS: In the head, no significant abnormalities are present. In the thoracic cage and upper extremities, there is moderately increased activity acromioclavicular and sternoclavicular joints bilaterally. A small focus of residual radiopharmaceutical at the injection site in the left antecubital fossa is noted. In the spine, a very minimal thoracolumbar scoliosis with lumbar convexity to the left is suggested. In the pelvis, no foci of abnormal activity are present in the pelvic bones. Urinary activity likely within a right lower quadrant neobladder and external collecting bag are noted. None of this activity appears to be in bone. In the lower extremities, no significant abnormalities are present. No other definite bony abnormalities are noted. The urinary bladder and faint visualization of both kidneys are noted. This CT urogram dated 10/10/2021 shows an ileal conduit draining through a right lower quadrant ostomy that correspond to the urinary activity overlying this region on this bone scan described above. NM/NM bone scan whole body IMPRESSION: A few mild nonspecific abnormalities are noted as described above and these are all likely arthritic or traumatic in etiology. None of these abnormalities is strongly suspicious for metastatic disease.
== END ==
LOC: HO.NUCMED 09:39
PROVIDERS: PCP Internal Medicine; Visit Provider Internal Medicine
DX: R10.2 Pelvic and perineal pain (principal); C67.9 Malignant neoplasm of bladder, unspecified
CPT/HCPCS: 78306; A9503

== ENCOUNTER 2022-03-18 09:50 | Outpatient (REF) | payer MEDICARE, SELFPAY ==
[2022-03-18 11:06] LABS: MANUAL DIFF FLAG NO
[2022-03-18 11:16] LABS: Basophils Absolute Auto 0.1 X10*3/uL (0.0-0.2); Basophils Percent Auto 0.4 % (0-2); Eosinophils Absolute Auto 1.2 X10*3/uL (0.0-0.4); Eosinophils Percent Auto 5.4 % (0-4); Hemoglobin 10.7 g/dl (14.0-18.0); Imm Gran Abs Auto 0.12 X10*3/uL (0.00-0.03); Imm Gran Pct Auto 0.6 % (0.0-0.4); Lymphocytes Absolute Auto 0.7 X10*3/uL (1.2-4.9); Lymphocytes Percent Auto 3.1 % (20-40); Mean Corpuscular HGB Conc 31.5 g/dl (31.0-36.0); Mean Corpuscular Hemoglobin 29.8 pg (27.0-33.0); Mean Corpuscular Volume 94.7 fL (80.0-98.0); Monocytes Percent Auto 4.5 % (2-11); Neutrophils Absolute Auto 18.3 x10*3/uL (2.0-8.3); Platelet Count 311 X10*3/uL (160-400); Red Blood Count 3.59 X10*6/uL (4.60-5.80); Red Cell Distribution Width 13.5 % (11.0-16.0); White Blood Count 21.3 X10*3/uL (4.8-10.8)
[2022-03-18 13:11] LABS: Alanine Aminotransferase 7 U/L (0-40); Albumin Level 3.3 g/dL (3.5-5.0); Alkaline Phosphatase 102 U/L (39-117); Anion Gap 16 (12-20); Aspartate Amino Transferase 10 U/L (5-37); Blood Urea Nitrogen 19 mg/dL (9-16); Calcium 9.1 mg/dL (8.4-10.2); Carbon Dioxide 26 mmol/L (22-29); Chloride 104 mmol/L (96-108); Estimated Glomerular Filt Rate 52; Glucose Random 91 mg/dL (60-115); Potassium 4.5 mmol/L (3.3-5.1); Sodium 141 mmol/L (135-145); Total Protein 6.3 g/dL (6.5-8.0)
== END 2022-03-18 09:51 | disposition home or self-care (01) ==
LOC: HO.10HDL 09:50
PROVIDERS: Visit Provider Internal Medicine Medical Oncology
DX: C68.9 Malignant neoplasm of urinary organ, unspecified (principal); D72.828 Other elevated white blood cell count
CPT/HCPCS: 36415; 80053; 85025

== ENCOUNTER 2022-03-28 06:14 | Outpatient (REF) | payer MEDICARE, SELFPAY ==
[2022-03-28 11:59] LABS: Anion Gap 12 (12-20); Blood Urea Nitrogen 21 mg/dL (9-16); Calcium 9.1 mg/dL (8.4-10.2); Carbon Dioxide 26 mmol/L (22-29); Chloride 106 mmol/L (96-108); Estimated Glomerular Filt Rate 52; Glucose Random 107 mg/dL (60-115); Potassium 3.9 mmol/L (3.3-5.1); Sodium 140 mmol/L (135-145)
[2022-03-28 12:37] LABS: Folate 4.4 ng/mL (> or = 4.0); Vitamin B12 744 pg/mL (200-900)
== END 2022-03-28 06:15 | disposition home or self-care (01) ==
LOC: HO.HMGCLDS 06:14
PROVIDERS: PCP Internal Medicine; Visit Provider Urology
DX: C67.9 Malignant neoplasm of bladder, unspecified (principal)
CPT/HCPCS: 36415; 80048; 82607; 82746

== ENCOUNTER → 2022-04-03 08:49 | Outpatient (BNVA) | payer MEDICARE, SELFPAY | PROVIDERS: PCP Internal Medicine; Visit Provider Urology | DX: C67.9 Malignant neoplasm of bladder, unspecified (principal) | CPT/HCPCS: 99212 ==

== ENCOUNTER 2022-04-08 10:04 | Outpatient (REF) | payer MEDICARE, SELFPAY ==
[2022-04-08 11:47] LABS: Basophils Absolute Auto 0.1 X10*3/uL (0.0-0.2); Basophils Percent Auto 0.4 % (0-2); Eosinophils Absolute Auto 1.2 X10*3/uL (0.0-0.4); Eosinophils Percent Auto 4.6 % (0-4); Hematocrit 32.8 % (42.0-52.0); Hemoglobin 10.4 g/dl (14.0-18.0); Imm Gran Abs Auto 0.15 X10*3/uL (0.00-0.03); Imm Gran Pct Auto 0.6 % (0.0-0.4); Lymphocytes Percent Auto 3.8 % (20-40); MANUAL DIFF FLAG SCAN; Mean Corpuscular HGB Conc 31.7 g/dl (31.0-36.0); Mean Corpuscular Hemoglobin 29.7 pg (27.0-33.0); Mean Corpuscular Volume 93.7 fL (80.0-98.0); Mean Platelet Volume 10.8 fL (9.4-12.4); Monocytes Absolute Auto 1.3 X10*3/uL (0.1-1.2); Monocytes Percent Auto 5.1 % (2-11); Neutrophils Absolute Auto 21.2 x10*3/uL (2.0-8.3); Neutrophils Percent Auto 85.5 % (45-73); Platelet Count 336 X10*3/uL (160-400); Red Cell Distribution Width 13.9 % (11.0-16.0); SCAN SMEAR FLAG 1; White Blood Count 24.8 X10*3/uL (4.8-10.8)
[2022-04-08 12:43] LABS: SLIDE REVIEW VERIFIED
== END 2022-04-08 10:05 | disposition home or self-care (01) ==
LOC: HO.HMGCLDS 10:04
PROVIDERS: Visit Provider Internal Medicine Medical Oncology
DX: D72.828 Other elevated white blood cell count (principal)
CPT/HCPCS: 36415; 85025

== ENCOUNTER 2022-04-11 11:31 | Observation (INO) | payer MEDICARE, SELFPAY ==
--- NOTE | ~2022-04-11 | CT_ITS ---
EXAMINATION: CT HEAD WITHOUT CONTRAST CLINICAL INFORMATION: Feeling off-balance since Friday, slurred speech. COMPARISON: None TECHNIQUE: Contiguous axial imaging was performed from the skull base to vertex without intravenous administration of contrast. Coronal and sagittal reformatted images were obtained. This CT examination was performed using dose optimization techniques as appropriate, variously including the following: *Automated exposure control *Adjustment of mA and/or kV according to patient size (this includes techniques or standardized protocols for targeted exams where dose is matched to indication/reason for exam; i.e. extremities or head) *Use of iterative reconstruction technique DLP: 631 mGy-cm FINDINGS: There is mild widening of the cortical sulci and associated ventriculomegaly. The lateral ventricles are symmetrical. The third and fourth ventricles are in their normal midline position. The basilar and prepontine cisterns are unremarkable. There is no acute intra or extracerebral abnormality. There is no mass effect or midline shift. Sections through the bony calvarium are unremarkable. The orbits are intact. The paranasal sinuses show a small retention cyst versus inflammatory polyp anteriorly in the right maxillary sinus. No air-fluid levels. The mastoid air cells are clear. Mild mid nasal septal deviation. CT/CT head/brain wo IV con IMPRESSION: No acute intracranial pathology.
--- NOTE | ~2022-04-11 | XR_ITS ---
EXAMINATION: XR CHEST CLINICAL INFORMATION: Off-balance since Friday, slurred speech. COMPARISON: 03/07/2022 chest radiographs. TECHNIQUE: 2 views of the chest were obtained. FINDINGS: Support devices: Left-sided pacemaker device appears in good position. No significant abnormality is noted involving the heart, lungs, mediastinum, bony thorax or soft tissues. XR/XR chest 2V IMPRESSION: No acute cardiopulmonary process.
[2022-04-11 11:38] VITALS: BP 147/83; PULSE 80; RESP 19; TEMP 36.6; O2SAT 100; BMI 29.0
--- NOTE | 2022-04-11 11:41 | ECG_ITS ---
Test Reason : neuro symptoms Blood Pressure : / mmHG Vent. Rate : 076 BPM Atrial Rate : 076 BPM P-R Int : 138 ms QRS Dur : 110 ms QT Int : 416 ms P-R-T Axes : 033 -09 082 degrees QTc Int : 468 ms Normal sinus rhythm Minimal voltage criteria for LVH, may be normal variant ( [place] product ) ST depression, consider subendocardial injury Abnormal ECG When compared with ECG of 26-JUN-2020 07:18, Sinus rhythm has replaced Atrial fibrillation Vent. rate has decreased BY 48 BPM Referred By: Hermila Valente Electronically Signed By:Tin Anderson
--- NOTE | 2022-04-11 11:47 | ED_ITS ---
HPI - General Adult General Chief complaint: General Medical <LIN Dyson - Last Filed: 04/11/22 11:57> Stated complaint: OFF BALANCE ,EARS BLOCKED <LIN Dyson - Last Filed: 04/11/22 11:57> Time Seen by Provider: 04/11/22 13:24 <LIN Dyson - Last Filed: 04/11/22 11:57> Source: patient and family <Lizzy Mcnally NP - Last Filed: 04/11/22 17:18> Mode of arrival: wheelchair <Lizzy Mcnally NP - Last Filed: 04/11/22 17:18> Limitations: no limitations <Lizzy Mcnally NP - Last Filed: 04/11/22 17:18> History of Present Illness HPI narrative: This is a 77-year-old male who has a past medical history of hypertension, hyperlipidemia, AFib on Xarelto, coronary artery disease, chronic kidney disease who presents to the emergency room with complaints of feeling off balance since Friday. Patient reports that he feels like both of his ears are clogged. Both ears are painful. He went to walk-in clinic on Friday and was started on meclizine. Patient reports he took 1 dose yesterday but did not feel any better so he has not taken any additional doses today. Patient reports he feels off balance when he is walking. Describes as he feels like he is going to fall. Denies dizziness, headache, chest pain, shortness of breath, abdominal pain, vomiting, vision changes. <Lizzy Mcnally NP - Last Filed: 04/11/22 17:18> Related Data Home medications: Home Medications Medication Instructions Recorded Confirmed aspirin 81 mg tablet,delayed 81 mg PO DAILY 02/08/20 04/11/22 release (Adult Low Dose Aspirin) atorvastatin 40 mg tablet 40 mg PO BEDTIME 02/08/20 04/11/22 cyanocobalamin (vitamin B-12) 1,000 mcg PO DAILY 05/15/20 04/11/22 1,000 mcg tablet (Vitamin B-12) atenolol 50 mg tablet 25 mg PO BID 04/11/22 04/11/22 rivaroxaban 15 mg tablet (Xarelto) 15 mg PO DAILY@1700 04/11/22 04/11/22 Previous Rx's Medication Instructions Recorded dronedarone 400 mg tablet (Multaq) 400 mg PO BID #90 tabs 04/04/21 meclizine 12.5 mg tablet 12.5 mg PO DAILY PRN dizziness #10 04/10/22 tabs <LIN Dyson - Last Filed: 04/11/22 11:57> Allergies/adverse reactions: Allergies Allergy/AdvReac Type Severity Reaction Status Date / Time clopidogrel [From PLAVIX] Allergy Intermediate HIVES, rash Verified 04/03/22 08:51 Sulfa (Sulfonamide Allergy Intermediate RASH Verified 04/03/22 08:51 Antibiotics) [SULFA (SULFONAMIDE ANTIBIOTICS)] <LIN Dyson - Last Filed: 04/11/22 11:57> Review of Systems Review of Systems: Yes all other systems are reviewed and are negative <Lizzy Mcnally NP - Last Filed: 04/11/22 17:18> Constitutional: Constitutional: Reports no additional constitutional complaints, Denies body ache(s), Denies chills, Denies fever(s), Denies headache(s) and Denies weakness <Lizzy Mcnally NP - Last Filed: 04/11/22 17:18> Eyes: Eyes: Reports no additional eye complaints and Denies change in vision <Lizzy Mcnally NP - Last Filed: 04/11/22 17:18> ENT: Reports system reviewed and no additional complaints, except as documented, Denies dizziness, Denies headache(s), Denies nasal congestion, Denies nasal discharge and Denies neck pain <Lizzy Mcnally NP - Last Filed: 04/11/22 17:18> Cardiovascular: Cardiovascular: Reports no additional cardiovascular complaints, Denies chest pain, Denies leg edema and Denies dyspnea <Lizzy Mcnally NP - Last Filed: 04/11/22 17:18> Respiratory: Respiratory: Reports no additional respiratory complaints, Denies cough and Denies dyspnea <Lizzy Mcnally NP - Last Filed: 04/11/22 17:18> Gastrointestinal: Gastrointestinal: Reports no additional gastrointestinal complaints, Denies abdominal pain, Denies diarrhea, Denies nausea and Denies vomiting <Lizzy Mcnally NP - Last Filed: 04/11/22 17:18> Genitourinary: Genitourinary: Denies urinary incontinence <Lizzy Mcnally NP - Last Filed: 04/11/22 17:18> Musculoskeletal: Musculoskeletal: Reports no additional musculoskeletal complaints, Reports abnormal gait, Denies back pain, Denies arthralgias, Denies joint swelling, Denies neck pain, Denies numbness and Denies tingling <Lizzy Mcnally NP - Last Filed: 04/11/22 17:18> Integumentary/Breasts: Skin/Breast: Reports system reviewed and no additional complaints, except as docu and Denies rash <Lizzy Mcnally NP - Last Filed: 04/11/22 17:18> Neurologic: Reports system reviewed and no additional complaints, except as documented, Reports abnormal gait, Denies dizziness, Denies headache(s), Denies numbness, Denies tingling and Denies weakness <Lizzy Mcnally NP - Last Filed: 04/11/22 17:18> [facility] Past Medical History Attestation statement: The following information was validated with the patient. <Lizzy Mcnally NP - Last Filed: 04/11/22 17:18> Source: old records reviewed and nursing notes reviewed <Lizzy Mcnally NP - Last Filed: 04/11/22 17:18> Medical History: Medical History Acoustic neuroma CAD (coronary artery disease) Cardiac pacemaker in situ Carotid disease, bilateral Chronic kidney disease CVA (cerebral vascular accident) Hard of hearing History of TIAs HTN (hypertension) Hyperlipidemia Paroxysmal atrial fibrillation Sick sinus syndrome <LIN Dyson - Last Filed: 04/11/22 11:57> Surgical History: Surgical History History of permanent cardiac pacemaker placement Hx of cardiac cath Hx of colonoscopy Hx of cystoscopy Hx of left inguinal hernia repair Stented coronary artery <LIN Dyson - Last Filed: 04/11/22 11:57> Family History Family History: Family History Father CVD (cardiovascular disease) Mother CVD (cardiovascular disease) <LIN Dyson - Last Filed: 04/11/22 11:57> Social History Social History: Social History Are you a primary home care administrator to a significant other at home: No Do you presently have visiting nurse or other home services: No Alcohol intake: never Patient Tobacco Use Status: Never used Tobacco Second Hand Smoke Exposure: No Advance Directives: No Advance Directives Information Provided: Yes <LIN Dyson - Last Filed: 04/11/22 11:57> Physical Exam ED Vital Signs: Vital Signs - 24 hr 04/11/22 11:38 04/11/22 15:28 Temperature 98 F 97.7 F Pulse Rate 80 70 Respiratory Rate 19 16 Blood Pressure 147/83 H 136/56 L Pulse Oximetry 100 99 Oxygen Delivery Method Room Air BMI result Body Mass Index 29.0 <LIN Dyson - Last Filed: 04/11/22 11:57> Vital Signs - 24 hr 04/11/22 11:38 04/11/22 15:28 Temperature 98 F 97.7 F Pulse Rate 80 70 Respiratory Rate 19 16 Blood Pressure 147/83 H 136/56 L Pulse Oximetry 100 99 Oxygen Delivery Method Room Air BMI result Body Mass Index 29.0 <Lizzy Mcnally NP - Last Filed: 04/11/22 17:18> Const General: cooperative, healthy appearing, comfortable and no acute distress <Lizzy Mcnally NP - Last Filed: 04/11/22 17:18> Orientation/consciousness: patient oriented x3 <Lizzy Mcnally NP - Last Filed: 04/11/22 17:18> Limitations: no limitations <Lizzy Mcnally NP - Last Filed: 04/11/22 17:18> HENMT Head: Yes normal to inspection <Lizzy Mcnally NP - Last Filed: 04/11/22 17:18> Ears: hearing grossly normal bilaterally and other (bilateral cerumen impaction) <Lizzy Mcnally NP - Last Filed: 04/11/22 17:18> Eyes General: appearance normal, both eyes and all related structures <Lizzy Mcnally BIAS MACHINE OPERATOR HELPER - Last Filed: 04/11/22 17:18> Pupils: Equal, round and reactive pupils present <Lizzy Mcnally BIAS MACHINE OPERATOR HELPER - Last Filed: 04/11/22 17:18> Neck Neck: Yes normal visual inspection, Yes full ROM, Yes no lymphadenopathy and Yes no meningeal signs <Lizzy Mcnally BIAS MACHINE OPERATOR HELPER - Last Filed: 04/11/22 17:18> Chest Chest palpation & inspection: normal inspection of the chest <Lizzy Mcnally BIAS MACHINE OPERATOR HELPER - Last Filed: 04/11/22 17:18> Resp Effort & Inspection: normal respiratory effort <Lizzy Mcnally BIAS MACHINE OPERATOR HELPER - Last Filed: 04/11/22 17:18> Auscultation: clear to auscultation bilaterally <Lizzy Mcnally BIAS MACHINE OPERATOR HELPER - Last Filed: 04/11/22 17:18> Cardio Rate: regular rate <Lizzy Mcnally BIAS MACHINE OPERATOR HELPER - Last Filed: 04/11/22 17:18> Rhythm: regular rhythm <Lizzy Mcnally BIAS MACHINE OPERATOR HELPER - Last Filed: 04/11/22 17:18> Peripheral pulses: Peripheral pulses 2+ throughout <Lizzy Mcnally, BIAS MACHINE OPERATOR HELPER - Last Filed: 04/11/22 17:18> GI Inspection: Yes normal to inspection <Lizzy Mcnally BIAS MACHINE OPERATOR HELPER - Last Filed: 04/11/22 17:18> Palpation (GI): Soft to palpation and nontender <Lizzy Mcnally BIAS MACHINE OPERATOR HELPER - Last Filed: 04/11/22 17:18> General: Yes no CVA tenderness <Lizzy Mcnally BIAS MACHINE OPERATOR HELPER - Last Filed: 04/11/22 17:18> Back/Spine/Pelvis Back: no CVA tenderness <Lizzy Mcnally BIAS MACHINE OPERATOR HELPER - Last Filed: 04/11/22 17:18> Thoracic/Lumbar Spine: thoracic and lumbar spine normal to inspection <Lizzy Mcnally BIAS MACHINE OPERATOR HELPER - Last Filed: 04/11/22 17:18> Skin General skin exam: no rashes or lesions noted <Lizzy Mcnally NP - Last Filed: 04/11/22 17 :18> Neuro General: patient oriented x3, moves all extremities and no meningeal signs <Lizzy Mcnally NP - Last Filed: 04/11/22 17:18> Cranial nerves: Yes CN's II-XII intact bilaterally, Yes Equal, round and reactive pupils present, Yes Bilaterally intact EOM present, Yes Nystagmus not present, Yes Normal facial strength present and Yes Midline tongue present <Lizzy Mcnally BIAS MACHINE OPERATOR HELPER - Last Filed: 04/11/22 17:18> Cognition (Neuro): normal cognition <Lizzy Mcnally BIAS MACHINE OPERATOR HELPER - Last Filed: 04/11/22 17:18> Motor exam (neuro): 5/5 motor strength present throughout <Lizzy Mcnally BIAS MACHINE OPERATOR HELPER - Last Filed: 04/11/22 17:18> Sensory Exam: Normal double simultaneous stimulation for sensation <Lizzy Mcnally NP - Last Filed: 04/11/22 17:18> Coordination: fmhqup-iv-toac test normal and vhap-dl-dhbp test normal <Lizzy Mcnally BIAS MACHINE OPERATOR HELPER - Last Filed: 04/11/22 17:18> Extrem General: Yes normal to inspection, Yes no pedal edema and Yes no calf tenderness <Lizzy Mcnally NP - Last Filed: 04/11/22 17:18> Course Course Course Narrative: RME- 11:48am 77yoM with a PMHx of afib hx on Xarelto, bladder cancer treated with excision?who is presenting to the ER with his at bedside with complaints of feeling off balance since Friday which continues to worse with associated slurred speech. Reports that he went to [place] or urgent care and was given a white pill which provided no symptomatic relief to him. And his symptoms continued is concerned therefore she brought him here for further evaluation treatment On exam patient is alert and oriented x3. Is hard of hearing. He has a noticeable ataxia. Patient noted to have a slurred speech. Otherwise facial nerves symmetrical bilaterally no weakness when the patient smiles. 5/5 strength bilaterally to arms and legs. No nystagmus is noted. NIH SS score 2. Although patient symptoms started on Friday more than 72 hours ago and he is on blood thinners therefore at this time he would not be a tPA candidate. Plan: Labs, CT scan of brain, EKG, chest x-ray. Patient will be sent back to the waiting room to be evaluated in ED. <LIN Dyson - Last Filed: 04/11/22 11:57> Reevaluation(s) Reevaluation #1: CT head negative. Labs are unremarkable with exception of an indeterminate troponin and chronic leukocytosis. Leukocytosis is not from infection and is chronic. Patient can not walk. Patient is ataxic. Patient may need MRI the brain to eval for underlying cerebellar infarct. Patient has pacemaker. Per patient his pacemaker is MR conditional([place]). I called and spoke to MRI. They are able to do the MRI of the brain tomorrow. They report that this will require either the added wrap or interstate planner to program a pacemaker prior to MRI, patient will be monitored by an ACLS nurse, and reprogrammed after by the rep. Spoke to Dr Cabrera <Lizzy Mcnally NP - Last Filed: 04/11/22 17:18> Medications Administered Generic Name Dose Route Start Last Admin Trade Name Freq PRN Reason Stop Dose Admin Dextrose/Sodium Chloride 1,000 mls @ 100 mls/hr 04/11/22 16:30 04/11/22 17:09 D51/2ns IVCONT 100 mls/hr .Q10H SHANNAN Administration Discontinued Medications Generic Name Dose Route Start Last Admin Trade Name Freq PRN Reason Stop Dose Admin Meclizine HCl 50 mg 04/11/22 14:15 04/11/22 14:34 Meclizine Hcl 25 Mg Tablet PO 04/11/22 14:16 50 mg ONCE ONE Administration <LIN Dyson - Last Filed: 04/11/22 11:57> Medications Administered Generic Name Dose Route Start Last Admin Trade Name Freq PRN Reason Stop Dose Admin Dextrose/Sodium Chloride 1,000 mls @ 100 mls/hr 04/11/22 16:30 04/11/22 17:09 D51/2ns IVCONT 100 mls/hr .Q10H SHANNAN Administration Discontinued Medications Generic Name Dose Route Start Last Admin Trade Name Freq PRN Reason Stop Dose Admin Meclizine HCl 50 mg 04/11/22 14:15 04/11/22 14:34 Meclizine Hcl 25 Mg Tablet PO 04/11/22 14:16 50 mg ONCE ONE Administration <Lizzy Mcnally NP - Last Filed: 04/11/22 17:18> Medical Decision Making Medical Decision Making [facility] Narrative: 77 yo male here with unsteady gait since Friday. Patient trial dose of meclizine with no improvement in symptoms. On arrival vitals are stable. Patient has normal cerebellar function. Patient has ataxia. Will obtain labs, EKG, CT head, covid screen. Will trial meclizine <Lizzy Mcnally NP - Last Filed: 04/11/22 17:18> Differential Diagnosis Differential Diagnoses: The differential diagnosis associated with the presentation includes <Lizzy Mcnally NP - Last Filed: 04/11/22 17:18> Cerebellar infarct, metabolic causes, orthostatic hypotension, ACS <Lizzy Mcnally NP - Last Filed: 04/11/22 17:18> Admission/Observation Consideration of admission/observation: Escalation of care including admission/observation considered <Lizzy Mcnally NP - Last Filed: 04/11/22 17:18> Patient with ataxia of with negative CT with symptoms less than 72 hours cannot rule out cerebellar infarct. Patient will need admission for MRI <Lizzy Mcnally NP - Last Filed: 04/11/22 17:18> Consult Healthcare Provider Management of the patient was discussed with: Hospitalist <Lizzy Mcnally NP - Last Filed: 04/11/22 17:18> Spoke to Dr. Cabrera who accepted admission <Lizzy Mcnally NP - Last Filed: 04/11/22 17:18> Lab Data [facility] Lab Attestation statement: I reviewed the patient's lab results. <Lizzy Mcnally NP - Last Filed: 04/11/22 17:18> Result Diagrams: 04/11/22 12:34 04/11/22 12:34 <LIN Dyson - Last Filed: 04/11/22 11:57> Labs: Lab Results 04/11/22 04/11/22 04/11/22 Range/Units 12:34 12:34 12:34 WBC 20.2 H (4.8-10.8) X10*3/uL RBC 3.80 L (4.60-5.80) X10*6/uL Hgb 11.0 L (14.0-18.0) g/dl Hct 34.7 L (42.0-52.0) % MCV 91.3 (80.0-98.0) fL MCH 28.9 (27.0-33.0) pg MCHC 31.7 (31.0-36.0) g/dl RDW 14.0 (11.0-16.0) % Plt Count 325 (160-400) X10*3/uL MPV 9.9 (9.4-12.4) fL Immature Gran % (Auto) 0.4 (0.0-0.4) % Neut % (Auto) 86.6 H (45-73) % Lymph % (Auto) 4.6 L (20-40) % [place] % (Auto) 4.0 (2-11) % Eos % (Auto) 4.1 H (0-4) % Baso % (Auto) 0.3 (0-2) % Lymph # (Auto) 0.9 L (1.2-4.9) X10*3/uL [place] # (Auto) 0.8 (0.1-1.2) X10*3/uL Eos # (Auto) 0.8 H (0.0-0.4) X10*3/uL Baso # (Auto) 0.1 (0.0-0.2) X10*3/uL Abs Immat Gran (auto) 0.09 H (0.00-0.03) X10*3/uL Absolute Neuts (auto) 17.5 H (2.0-8.3) x10*3/uL Absolute Nucleated RBC 0.000 (0.0-0.012) X10*3/uL Nucleated RBC % (auto) 0.0 (0.0-0.2) /100WBC PT 13.9 H (10.0-13.1) SEC INR 1.2 H (0.9-1.1) Sodium 138 (135-145) mmol/L Potassium 4.4 (3.3-5.1) mmol/L Chloride 106 (96-108) mmol/L Carbon Dioxide 23 (22-29) mmol/L Anion Gap 13 (12-20) BUN 25 H (9-16) mg/dL Creatinine 1.35 (0.5-1.4) mg/dL Estim Creat Clear Calc 48.9 Estimated GFR 52 Random Glucose 113 (60-115) mg/dL Calcium 9.0 (8.4-10.2) mg/dL Magnesium 1.9 (1.6-2.6) mg/dL Total Bilirubin 0.8 (0.0-1.0) mg/dL AST 10 (5-37) U/L ALT 11 (0-40) U/L Alkaline Phosphatase 100 (39-117) U/L Troponin I High Sens (<3.5-35.0) ng/L Total Protein 6.3 L (6.5-8.0) g/dL Albumin 3.3 L (3.5-5.0) g/dL Influenza Type A (PCR) (Negative) Influenza Type B (PCR) (Negative) RSV RNA Qual (PCR) (Negative) SARS-CoV-2 RNA (RT-PCR) (Negative) 04/11/22 04/11/22 04/11/22 Range/Units 12:34 12:34 16:00 WBC (4.8-10.8) X10*3/uL RBC (4.60-5.80) X10*6/uL Hgb (14.0-18.0) g/dl Hct (42.0-52.0) % MCV (80.0-98.0) fL MCH (27.0-33.0) pg MCHC (31.0-36.0) g/dl RDW (11.0-16.0) % Plt Count (160-400) X10*3/uL MPV (9.4-12.4) fL Immature Gran % (Auto) (0.0-0.4) % Neut % (Auto) (45-73) % Lymph % (Auto) (20-40) % [place] % (Auto) (2-11) % Eos % (Auto) (0-4) % Baso % (Auto) (0-2) % Lymph # (Auto) (1.2-4.9) X10*3/uL [place] # (Auto) (0.1-1.2) X10*3/uL Eos # (Auto) (0.0-0.4) X10*3/uL Baso # (Auto) (0.0-0.2) X10*3/uL Abs Immat Gran (auto) (0.00-0.03) X10*3/uL Absolute Neuts (auto) (2.0-8.3) x10*3/uL Absolute Nucleated RBC (0.0-0.012) X10*3/uL Nucleated RBC % (auto) (0.0-0.2) /100WBC PT (10.0-13.1) SEC INR (0.9-1.1) Sodium (135-145) mmol/L Potassium (3.3-5.1) mmol/L Chloride (96-108) mmol/L Carbon Dioxide (22-29) mmol/L Anion Gap (12-20) BUN (9-16) mg/dL Creatinine (0.5-1.4) mg/dL Estim Creat Clear Calc Estimated GFR Random Glucose (60-115) mg/dL Calcium (8.4-10.2) mg/dL Magnesium (1.6-2.6) mg/dL Total Bilirubin (0.0-1.0) mg/dL AST (5-37) U/L ALT (0-40) U/L Alkaline Phosphatase (39-117) U/L Troponin I High Sens 27.8 32.3 (<3.5-35.0) ng/L Total Protein (6.5-8.0) g/dL Albumin (3.5-5.0) g/dL Influenza Type A (PCR) NEGATIVE (Negative) Influenza Type B (PCR) NEGATIVE (Negative) RSV RNA Qual (PCR) NEGATIVE (Negative) SARS-CoV-2 RNA (RT-PCR) NEGATIVE (Negative) <LIN Dyson - Last Filed: 04/11/22 11:57> Lab Results 04/11/22 04/11/22 04/11/22 Range/Units 12:34 12:34 12:34 WBC 20.2 H (4.8-10.8) X10*3/uL RBC 3.80 L (4.60-5.80) X10*6/uL Hgb 11.0 L (14.0-18.0) g/dl Hct 34.7 L (42.0-52.0) % MCV 91.3 (80.0-98.0) fL MCH 28.9 (27.0-33.0) pg MCHC 31.7 (31.0-36.0) g/dl RDW 14.0 (11.0-16.0) % Plt Count 325 (160-400) X10*3/uL MPV 9.9 (9.4-12.4) fL Immature Gran % (Auto) 0.4 (0.0-0.4) % Neut % (Auto) 86.6 H (45-73) % Lymph % (Auto) 4.6 L (20-40) % [place] % (Auto) 4.0 (2-11) % Eos % (Auto) 4.1 H (0-4) % Baso % (Auto) 0.3 (0-2) % Lymph # (Auto) 0.9 L (1.2-4.9) X10*3/uL [place] # (Auto) 0.8 (0.1-1.2) X10*3/uL Eos # (Auto) 0.8 H (0.0-0.4) X10*3/uL Baso # (Auto) 0.1 (0.0-0.2) X10*3/uL Abs Immat Gran (auto) 0.09 H (0.00-0.03) X10*3/uL Absolute Neuts (auto) 17.5 H (2.0-8.3) x10*3/uL Absolute Nucleated RBC 0.000 (0.0-0.012) X10*3/uL Nucleated RBC % (auto) 0.0 (0.0-0.2) /100WBC PT 13.9 H (10.0-13.1) SEC INR 1.2 H (0.9-1.1) Sodium 138 (135-145) mmol/L Potassium 4.4 (3.3-5.1) mmol/L Chloride 106 (96-108) mmol/L Carbon Dioxide 23 (22-29) mmol/L Anion Gap 13 (12-20) BUN 25 H (9-16) mg/dL Creatinine 1.35 (0.5-1.4) mg/dL Estim Creat Clear Calc 48.9 Estimated GFR 52 Random Glucose 113 (60-115) mg/dL Calcium 9.0 (8.4-10.2) mg/dL Magnesium 1.9 (1.6-2.6) mg/dL Total Bilirubin 0.8 (0.0-1.0) mg/dL AST 10 (5-37) U/L ALT 11 (0-40) U/L Alkaline Phosphatase 100 (39-117) U/L Troponin I High Sens (<3.5-35.0) ng/L Total Protein 6.3 L (6.5-8.0) g/dL Albumin 3.3 L (3.5-5.0) g/dL Influenza Type A (PCR) (Negative) Influenza Type B (PCR) (Negative) RSV RNA Qual (PCR) (Negative) SARS-CoV-2 RNA (RT-PCR) (Negative) 04/11/22 04/11/22 04/11/22 Range/Units 12:34 12:34 16:00 WBC (4.8-10.8) X10*3/uL RBC (4.60-5.80) X10*6/uL Hgb (14.0-18.0) g/dl Hct (42.0-52.0) % MCV (80.0-98.0) fL MCH (27.0-33.0) pg MCHC (31.0-36.0) g/dl RDW (11.0-16.0) % Plt Count (160-400) X10*3/uL MPV (9.4-12.4) fL Immature Gran % (Auto) (0.0-0.4) % Neut % (Auto) (45-73) % Lymph % (Auto) (20-40) % [place] % (Auto) (2-11) % Eos % (Auto) (0-4) % Baso % (Auto) (0-2) % Lymph # (Auto) (1.2-4.9) X10*3/uL [place] # (Auto) (0.1-1.2) X10*3/uL Eos # (Auto) (0.0-0.4) X10*3/uL Baso # (Auto) (0.0-0.2) X10*3/uL Abs Immat Gran (auto) (0.00-0.03) X10*3/uL Absolute Neuts (auto) (2.0-8.3) x10*3/uL Absolute Nucleated RBC (0.0-0.012) X10*3/uL Nucleated RBC % (auto) (0.0-0.2) /100WBC PT (10.0-13.1) SEC INR (0.9-1.1) Sodium (135-145) mmol/L Potassium (3.3-5.1) mmol/L Chloride (96-108) mmol/L Carbon Dioxide (22-29) mmol/L Anion Gap (12-20) BUN (9-16) mg/dL Creatinine (0.5-1.4) mg/dL Estim Creat Clear Calc Estimated GFR Random Glucose (60-115) mg/dL Calcium (8.4-10.2) mg/dL Magnesium (1.6-2.6) mg/dL Total Bilirubin (0.0-1.0) mg/dL AST (5-37) U/L ALT (0-40) U/L Alkaline Phosphatase (39-117) U/L Troponin I High Sens 27.8 32.3 (<3.5-35.0) ng/L Total Protein (6.5-8.0) g/dL Albumin (3.5-5.0) g/dL Influenza Type A (PCR) NEGATIVE (Negative) Influenza Type B (PCR) NEGATIVE (Negative) RSV RNA Qual (PCR) NEGATIVE (Negative) SARS-CoV-2 RNA (RT-PCR) NEGATIVE (Negative) <Lizzy Mcnally NP - Last Filed: 04/11/22 17:18> Independent Interpretation I performed an independent interpretation of an: EKG, Plain X-Ray and CT Scan <Lizzy Mcnally NP - Last Filed: 04/11/22 17:18> Interpretation: Independently reviewed the EKG which shows normal sinus rhythm with a rate of 76, normal KS, normal QRS, ST depressions I indepedentely reviewed the chest x-ray and CT head and agree with radiologist's report <Lizzy Mcnally NP - Last Filed: 04/11/22 17:18> Radiology Impression Discussion of test interpretation with radiology: I have reviewed the radiologist's reading. <Lizzy Mcnally NP - Last Filed: 04/11/22 17:18> Radiologist Impression: [address] [address] [address] Scan Report Signed Patient: Martin Charles MR#: [id number] : 1945 Acct:[id number] Age/Sex: 77 / M ADM Date: 04/11/22 Loc: HO.ED Attending Dr: Ordering Physician: Hermila Valente Date of Service: 04/11/22 Procedure(s): CT head/brain wo IV con Accession Number(s): [id number] cc: Hermila Valente~ EXAMINATION: CT HEAD WITHOUT CONTRAST CLINICAL INFORMATION: Feeling off-balance since Friday, slurred speech.? COMPARISON: None TECHNIQUE: Contiguous axial imaging was performed from the skull base to vertex without intravenous administration of contrast. Coronal and sagittal reformatted images were obtained. This CT examination was performed using dose optimization techniques as appropriate, variously including the following: *Automated exposure control *Adjustment of mA and/or kV according to patient size (this includes techniques or standardized protocols for targeted exams where dose is matched to indication/reason for exam; i.e. extremities or head) *Use of iterative reconstruction technique DLP: 631 mGy-cm FINDINGS: There is mild widening of the cortical sulci and associated ventriculomegaly. The lateral ventricles are symmetrical. The third and fourth ventricles are in their normal midline position. The basilar and prepontine cisterns are unremarkable. There is no acute intra or extracerebral abnormality. There is no mass effect or midline shift. Sections through the bony calvarium are unremarkable. The orbits are intact. The paranasal sinuses show a small retention cyst versus inflammatory polyp anteriorly in the right maxillary sinus. No air-fluid levels. The mastoid air cells are clear. Mild mid nasal septal deviation. CT/CT head/brain wo IV con IMPRESSION: No acute intracranial pathology. [address] [address] XRay Report Signed Patient: Martin Charles MR#: [id number] : 1945 Acct:[id number] Age/Sex: 77 / M ADM Date: 04/11/22 Loc: HO.ED Attending Dr: Ordering Physician: Hermila Valente Date of Service: 04/11/22 Procedure(s): XR chest 2V Accession Number(s): [id number] cc: Hermila Valente~ EXAMINATION: XR CHEST CLINICAL INFORMATION: Off-balance since Friday, slurred speech. COMPARISON: 03/07/2022 chest radiographs. TECHNIQUE: 2 views of the chest were obtained. FINDINGS: Support devices: Left-sided pacemaker device appears in good position. No significant abnormality is noted involving the heart, lungs, mediastinum, bony thorax or soft tissues. XR/XR chest 2V IMPRESSION: No acute cardiopulmonary process. <Lizzy Mcnally NP - Last Filed: 04/11/22 17:18> Independent Historian Clinical information obtained from an independent historian. History obtained from or confirmed by: Spouse <Lizzy Mcnally NP - Last Filed: 04/11/22 17:18> Discharge Plan Discharge Clinical Impression: Ataxia <LIN Dyson - Last Filed: 04/11/22 11:57> Patient Disposition: Admitted As Inpatient <LIN Dyson - Last Filed: 04/11/22 11:57>
[2022-04-11 12:39] LABS: MANUAL DIFF FLAG NO
[2022-04-11 12:41] LABS: Basophils Absolute Auto 0.1 X10*3/uL (0.0-0.2); Basophils Percent Auto 0.3 % (0-2); Eosinophils Absolute Auto 0.8 X10*3/uL (0.0-0.4); Eosinophils Percent Auto 4.1 % (0-4); Hematocrit 34.7 % (42.0-52.0); Imm Gran Abs Auto 0.09 X10*3/uL (0.00-0.03); Imm Gran Pct Auto 0.4 % (0.0-0.4); Lymphocytes Absolute Auto 0.9 X10*3/uL (1.2-4.9); Lymphocytes Percent Auto 4.6 % (20-40); Mean Corpuscular HGB Conc 31.7 g/dl (31.0-36.0); Mean Corpuscular Hemoglobin 28.9 pg (27.0-33.0); Mean Corpuscular Volume 91.3 fL (80.0-98.0); Mean Platelet Volume 9.9 fL (9.4-12.4); Monocytes Absolute Auto 0.8 X10*3/uL (0.1-1.2); Neutrophils Absolute Auto 17.5 x10*3/uL (2.0-8.3); Neutrophils Percent Auto 86.6 % (45-73); Platelet Count 325 X10*3/uL (160-400); White Blood Count 20.2 X10*3/uL (4.8-10.8)
[2022-04-11 12:47] LABS: INTERNATIONAL NORM RATIO 1.2 (0.9-1.1); Prothrombin Time 13.9 SEC (10.0-13.1)
[2022-04-11 12:55] LABS: Alanine Aminotransferase 11 U/L (0-40); Albumin Level 3.3 g/dL (3.5-5.0); Alkaline Phosphatase 100 U/L (39-117); Anion Gap 13 (12-20); Aspartate Amino Transferase 10 U/L (5-37); Bilirubin Total 0.8 mg/dL (0.0-1.0); Blood Urea Nitrogen 25 mg/dL (9-16); Carbon Dioxide 23 mmol/L (22-29); Chloride 106 mmol/L (96-108); Creatinine Clr Calc Pharmacy 48.9; Estimated Glomerular Filt Rate 52; Glucose Random 113 mg/dL (60-115); Magnesium 1.9 mg/dL (1.6-2.6); Potassium 4.4 mmol/L (3.3-5.1); Sodium 138 mmol/L (135-145); Total Protein 6.3 g/dL (6.5-8.0)
[2022-04-11 13:01] LABS: Troponin-I High Sensitivity 27.8 ng/L (<3.5-35.0)
[2022-04-11 13:21] LABS: Influenza A PCR NEGATIVE (Negative); Influenza B PCR NEGATIVE (Negative); Resp Syncy Virus RNA Qual PCR NEGATIVE (Negative); SARS COV2 PCR INHOUSE NEGATIVE (Negative)
[2022-04-11] MEDS: Meclizine HCl 25 MG TABLET 50 MG PO (14:34)
[2022-04-11 15:28] VITALS: BP 136/56; PULSE 70; RESP 16; TEMP 36.5; O2SAT 99
--- NOTE | 2022-04-11 15:59 | P.HPHOSP_ITS ---
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 He gets yearly MRI at [facility]. He is here today because a sense of imbalance for 3 to 4 days, essentially he feels unsteady when walking, has not fallen, no dizziness, he's still able to walk independently. Family also notes some speech changes, no weakness, no difficulty swallowing, Symptoms are more pronounced getting up from a sitting, and initiating walking. there has not been loss of consciousness.? CT head show no acute pathology. WBC is 20, he has no sings or symptoms of infection. MRI is planned but needs pacemaker disabled before that. Review of Systems Review of Systems: Sense of imbalance with ambulatio change in speech [facility] Medical History Acoustic neuroma CAD (coronary artery disease) Cardiac pacemaker in situ Carotid disease, bilateral Chronic kidney disease CVA (cerebral vascular accident) Hard of hearing History of TIAs HTN (hypertension) Hyperlipidemia Paroxysmal atrial fibrillation Sick sinus syndrome Family History Father CVD (cardiovascular disease) Mother CVD (cardiovascular disease) Surgical History History of permanent cardiac pacemaker placement Hx of cardiac cath Hx of colonoscopy Hx of cystoscopy Hx of left inguinal hernia repair Stented coronary artery Social History Household Members: Spouse Housing: House Are you a primary animal daycare provider to a significant other at home: No Do you presently have visiting nurse or other home services: No Alcohol intake: never Patient Tobacco Use Status: Never used Tobacco Smoked in Last 30 Days: No Second Hand Smoke Exposure: No Use of substances other than those prescribed or required for medical reasons: No Currently Displaying Signs/Symptoms of Drug Intoxication Withdrawal: No Any prior treatment program specific to substance use: No Have you been hit, kicked, punched, or otherwise hurt by someone within the past year? If so, by whom?: No Do you feel safe in your current relationship?: Yes Is there a partner from a previous relationship who is making you feel unsafe now?: No Are you made to feel afraid or neglected: No Advance Directives: No Advance Directives Information Provided: Yes Do you have thoughts of harming others: None Do you have a plan to hurt others: No Plan Recently lost weight without trying: No Nutrition Risks: No Nutritional Risk service: Yes Current occupational status: retired Meds Allergies Allergy/AdvReac Type Severity Reaction Status Date / Time clopidogrel [From PLAVIX] Allergy Intermediate HIVES, rash Verified 04/03/22 08:51 Sulfa (Sulfonamide Allergy Intermediate RASH Verified 04/03/22 08:51 Antibiotics) [SULFA (SULFONAMIDE ANTIBIOTICS)] Active Medications: Current Medications Pharmacy Consult (Consult Rx Perform Med Rec) 1 each MISCELLANE ONCE PRN PRN Reason: Consult order Home Medications Medication Instructions Recorded Confirmed Last Taken Type aspirin 81 mg tablet,delayed 81 mg PO DAILY 02/08/20 04/11/22 04/10/22 History release (Adult Low Dose Aspirin) atorvastatin 40 mg tablet 40 mg PO BEDTIME 02/08/20 04/11/22 04/10/22 History cyanocobalamin (vitamin B-12) 1,000 mcg PO DAILY 05/15/20 04/11/22 04/10/22 History 1,000 mcg tablet (Vitamin B-12) atenolol 50 mg tablet 25 mg PO BID 04/11/22 04/11/22 04/10/22 History rivaroxaban 15 mg tablet (Xarelto) 15 mg PO DAILY@1700 04/11/22 04/11/22 04/10/22 History Physical Exam Vital Signs and Narrative: Vital Signs: Last Vital Signs Temp 97.7 F 04/11/22 15:28 Pulse 70 04/11/22 15:28 Resp 16 04/11/22 15:28 BP 136/56 L 04/11/22 15:28 Pulse Ox 99 04/11/22 15:28 O2 Del Method 04/11/22 15:28 BMI result Body Mass Index 29.0 Const: Other: Constitutional: Alert, in no distress Mental Status: Oriented to person, place and time. Eyes: Pupils are equal, round and reactive to light. Ear, Nose and Throat: Oropharynx clear, mucous membranes moist. Ears and nose without eformities. Trachea midline. Respiratory: Clear to auscultation. No wheezing, rales or rhonchi. Cardiovascular: S1 S2 regular. No murmurs, rubs or gallops. Gastrointestinal: Abdomen soft, non-tender, non-distended. Normal bowel sounds.? Neurologic: Cranial nerves II-XII grossly intact. No focal neurological deficits. Moves all extremities spontaneously.?gait is unstead Skin: No rashes or lesions.? Musculoskeletal: No cyanosis or clubbing. Psychiatric: Normal mood and affect? Results Labs 04/11/22 12:34 04/11/22 12:34 Labs: Laboratory Results - last 24 hr 04/11/22 04/11/22 04/11/22 12:34 12:34 12:34 MCV 91.3 MCH 28.9 MCHC 31.7 RDW 14.0 Plt Count 325 MPV 9.9 Immature Gran % (Auto) 0.4 Neut % (Auto) 86.6 H Lymph % (Auto) 4.6 L Mcdonald % (Auto) 4.0 Eos % (Auto) 4.1 H Baso % (Auto) 0.3 Lymph # (Auto) 0.9 L Mcdonald # (Auto) 0.8 Eos # (Auto) 0.8 H Baso # (Auto) 0.1 Abs Immat Gran (auto) 0.09 H Absolute Neuts (auto) 17.5 H Absolute Nucleated RBC 0.000 Nucleated RBC % (auto) 0.0 PT 13.9 H INR 1.2 H Anion Gap 13 Estim Creat Clear Calc 48.9 Estimated GFR 52 Random Glucose 113 Calcium 9.0 Magnesium 1.9 Total Bilirubin 0.8 AST 10 ALT 11 Alkaline Phosphatase 100 Troponin I High Sens Total Protein 6.3 L Albumin 3.3 L Influenza Type A (PCR) Influenza Type B (PCR) RSV RNA Qual (PCR) SARS-CoV-2 RNA (RT-PCR) 04/11/22 04/11/22 12:34 12:34 MCV MCH MCHC RDW Plt Count MPV Immature Gran % (Auto) Neut % (Auto) Lymph % (Auto) Mcdonald % (Auto) Eos % (Auto) Baso % (Auto) Lymph # (Auto) Mcdonald # (Auto) Eos # (Auto) Baso # (Auto) Abs Immat Gran (auto) Absolute Neuts (auto) Absolute Nucleated RBC Nucleated RBC % (auto) PT INR Anion Gap Estim Creat Clear Calc Estimated GFR Random Glucose Calcium Magnesium Total Bilirubin AST ALT Alkaline Phosphatase Troponin I High Sens 27.8 Total Protein Albumin Influenza Type A (PCR) NEGATIVE Influenza Type B (PCR) NEGATIVE RSV RNA Qual (PCR) NEGATIVE SARS-CoV-2 RNA (RT-PCR) NEGATIVE Imaging Radiologist's Impressions: Impressions Chest X-Ray 04/11/22 11:54 IMPRESSION: No acute cardiopulmonary process. Head CT 04/11/22 12:02 IMPRESSION: No acute intracranial pathology. 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 He gets yearly MRI at [facility]. He is here today because a sense of imbalance for 3 to 4 days, essentially he feels unsteady when walking, has not fallen, no dizziness, he's still able to walk independently. Symptoms are more pronounced getting up from a sitting, and initiating walking. there has not been loss of consciousness.? CT head show no acute pathology. WBC is 20, he has no sings or symptoms of infection. MRI is planned but needs pacemaker disabled before that. Ataxic gati in setting of acoustic neuroma, TIA or storke cannot be ruled out--MRI to further investigate, maybe neurology eval Leukocytosis--no source of infection, likely reactive,check UA, CXR is fine Permanent AFIB--Atenolol, multaq and Xarelto HLD--Lipitor DVT prophylaix xarelto Obs pt Time Spent With Patient Time: Total time managing care of this patient today ____ minutes. Quality Stroke Does the patient have a stroke diagnosis?: No VTE Prior VTE?: No VTE Risk Level:: Medical - moderate - high VTE Device Contraindication: Treatment Not Indicated VTE Drug Contraindication: N/A - Med Ordered
--- NOTE | 2022-04-11 16:34 | PHA.MEDREC ---
Pharmacy Consult ? Medication Reconciliation Pharmacy has completed the medication reconciliation. Pt's spouse at bedside with list, confirmed [facility].
[2022-04-11 16:35] LABS: Troponin-I High Sensitivity 32.3 ng/L (<3.5-35.0)
[2022-04-11 16:50] VITALS: BP 143/54; BP 143/64; PULSE 69; PULSE 80
[2022-04-11 16:52] VITALS: BP 143/71; PULSE 90
[2022-04-11] MEDS: Dextrose 5 % and 0.45 % NaCl 1,000 ML 100 ML IVCONT (17:09)
[2022-04-11 18:38] VITALS: BP 153/63; PULSE 85; RESP 19; TEMP 36.3; O2SAT 98
[2022-04-11 18:45] LABS: Appearance Urine Turbid; Bacteria Urine 2+ (None Seen); Color Urine Yellow; Glucose Urine UA Negative (Negative); Leukocyte Esterase Urine Small (1+) (Negative); Nitrite Urine Positive (Negative); RBC Urine 0-2 /HPF (0-2); Specific Gravity - Urine 1.015 (1.005-1.025); Squamous Epithelial Cell Urine 0-2 /HPF (0-2); UACC Culture Trigger YES; UMIC TRIGGER UACC YES; Urine Blood Negative (Negative); Urine Ketones Negative (Negative); Urine Protein Trace mg/dL (Neg-Trace); WBC Urine >50 /HPF (0-5)
[2022-04-11] MEDS: Acetaminophen 325 MG TABLET 650 MG PO (18:48)
[2022-04-12] VITALS: BP 163/71; PULSE 80; RESP 18; TEMP 36.4; O2SAT 97
[2022-04-12] MEDS: Acetaminophen 325 MG TABLET 650 MG PO ×2 (00:48→11:07)
[2022-04-12] MEDS: Atorvastatin Calcium 40 MG TABLET PO (00:56)
[2022-04-12 04:00] VITALS: BP 128/61; PULSE 71; RESP 18; TEMP 36.8; O2SAT 98
[2022-04-12] MEDS: Dextrose 5 % and 0.45 % NaCl 1,000 ML 100 ML IVCONT (05:27)
[2022-04-12 06:47] LABS: MANUAL DIFF FLAG NO
[2022-04-12 06:52] LABS: Basophils Absolute Auto 0.1 X10*3/uL (0.0-0.2); Basophils Percent Auto 0.3 % (0-2); Eosinophils Absolute Auto 0.9 X10*3/uL (0.0-0.4); Eosinophils Percent Auto 4.8 % (0-4); Hematocrit 30.4 % (42.0-52.0); Imm Gran Abs Auto 0.14 X10*3/uL (0.00-0.03); Imm Gran Pct Auto 0.7 % (0.0-0.4); Lymphocytes Absolute Auto 0.9 X10*3/uL (1.2-4.9); Lymphocytes Percent Auto 4.6 % (20-40); Mean Corpuscular HGB Conc 32.9 g/dl (31.0-36.0); Mean Corpuscular Hemoglobin 29.9 pg (27.0-33.0); Mean Platelet Volume 10.3 fL (9.4-12.4); Monocytes Absolute Auto 0.9 X10*3/uL (0.1-1.2); Monocytes Percent Auto 4.6 % (2-11); Neutrophils Absolute Auto 16.2 x10*3/uL (2.0-8.3); Platelet Count 268 X10*3/uL (160-400); Red Blood Count 3.34 X10*6/uL (4.60-5.80); Red Cell Distribution Width 14.3 % (11.0-16.0); White Blood Count 19.1 X10*3/uL (4.8-10.8)
[2022-04-12 07:08] VITALS: BP 142/60; PULSE 77; RESP 16; TEMP 36.8; O2SAT 97
[2022-04-12 07:34] VITALS: BP 142/60; PULSE 77; O2SAT 97
[2022-04-12 11:23] VITALS: BP 153/68; PULSE 64; RESP 16; TEMP 37.5; O2SAT 99
--- NOTE | 2022-04-12 12:41 | PM.NEUROCN ---
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 His family reported that his speech was not back to normal and gait was still not back to baseline. He was not febrile did not have any headache and did not complain of any double vision. There was no sign of any seizure. Review of Systems Review of Systems: No recent cold or flu-like illness PMFSH Past Medical History Medical History Acoustic neuroma CAD (coronary artery disease) Cardiac pacemaker in situ Carotid disease, bilateral Chronic kidney disease CVA (cerebral vascular accident) Hard of hearing History of TIAs HTN (hypertension) Hyperlipidemia Paroxysmal atrial fibrillation Sick sinus syndrome Family History Family History Father CVD (cardiovascular disease) Mother CVD (cardiovascular disease) Surgical History Surgical History History of permanent cardiac pacemaker placement Hx of cardiac cath Hx of colonoscopy Hx of cystoscopy Hx of left inguinal hernia repair Stented coronary artery Social History Social History Household Members: Spouse Housing: House Are you a primary healthcare market consultant to a significant other at home: No Do you presently have visiting nurse or other home services: No Alcohol intake: never Patient Tobacco Use Status: Never used Tobacco Smoked in Last 30 Days: No Second Hand Smoke Exposure: No Use of substances other than those prescribed or required for medical reasons: No Currently Displaying Signs/Symptoms of Drug Intoxication Withdrawal: No Any prior treatment program specific to substance use: No Have you been hit, kicked, punched, or otherwise hurt by someone within the past year? If so, by whom?: No Do you feel safe in your current relationship?: Yes Is there a partner from a previous relationship who is making you feel unsafe now?: No Are you made to feel afraid or neglected: No Advance Directives: No Advance Directives Information Provided: Yes Do you have thoughts of harming others: None Do you have a plan to hurt others: No Plan Recently lost weight without trying: No Nutrition Risks: No Nutritional Risk Meds Allergies Allergy/AdvReac Type Severity Reaction Status Date / Time clopidogrel [From PLAVIX] Allergy Intermediate HIVES, rash Verified 04/03/22 08:51 Sulfa (Sulfonamide Allergy Intermediate RASH Verified 04/03/22 08:51 Antibiotics) [SULFA (SULFONAMIDE ANTIBIOTICS)] Active Medications: Current Medications Acetaminophen (Acetaminophen 325 Mg Tablet) 650 mg PO Q6H PRN PRN Reason: Pain, Mild (Pain Scale 1-3) Last Admin: 04/12/22 11:07 Dose: 650 mg Dextrose/Sodium Chloride (D51/2ns) 1,000 mls @ 100 mls/hr IVCONT .Q10H [facility] Last Admin: 04/12/22 05:27 Dose: 100 mls/hr Pharmacy Consult (Consult Rx Perform Med Rec) 1 each MISCELLANE ONCE PRN PRN Reason: Consult order Sodium Chloride (0.9 % Sodium Chloride Flush 3 Ml Syringe) 3 ml IVFLUSH QSHIFT [facility] Last Admin: 04/12/22 07:21 Dose: Not Given Home Medications Medication Instructions Recorded Confirmed Last Taken Type aspirin 81 mg tablet,delayed 81 mg PO DAILY 02/08/20 04/11/22 04/10/22 History release (Adult Low Dose Aspirin) atorvastatin 40 mg tablet 40 mg PO BEDTIME 02/08/20 04/11/22 04/10/22 History cyanocobalamin (vitamin B-12) 1,000 mcg PO DAILY 05/15/20 04/11/22 04/10/22 History 1,000 mcg tablet (Vitamin B-12) atenolol 50 mg tablet 25 mg PO BID 04/11/22 04/11/22 04/10/22 History rivaroxaban 15 mg tablet (Xarelto) 15 mg PO DAILY@1700 04/11/22 04/11/22 04/10/22 History Physical Exam Vital Signs: Vital Signs: Last Vital Signs Temp 99.5 F 04/12/22 11:23 Pulse 64 04/12/22 11:23 Resp 16 04/12/22 11:23 BP 153/68 H 04/12/22 11:23 Pulse Ox 99 04/12/22 11:23 O2 Del Method 04/12/22 11:23 BMI result Body Mass Index 29.0 Neuro: Other: He was alert and awake with normal spontaneity of speech fluency comprehension and flat affect. Pupils were round reactive to light. There was no nystagmus. Face was symmetrical. [id number] testing was okay. Deep tendon reflexes were on the brisker side with flexor plantars. He was able to get up and walk in a cautious slightly unsteady gait. Results Labs 04/12/22 06:25 04/11/22 12:34 Labs: Short CBC 04/11/22 04/12/22 Range/Units 12:34 06:25 WBC 20.2 H 19.1 H (4.8-10.8) X10*3/uL Hgb 11.0 L 10.0 L (14.0-18.0) g/dl Hct 34.7 L 30.4 L (42.0-52.0) % Plt Count 325 268 (160-400) X10*3/uL BMP 04/11/22 12:34 Sodium 138 Potassium 4.4 Chloride 106 Carbon Dioxide 23 BUN 25 H Creatinine 1.35 Calcium 9.0 Liver Function 04/11/22 Range/Units 12:34 Total Bilirubin 0.8 (0.0-1.0) mg/dL AST 10 (5-37) U/L ALT 11 (0-40) U/L Alkaline Phosphatase 100 (39-117) U/L Albumin 3.3 L (3.5-5.0) g/dL Urine 04/11/22 04/11/22 04/11/22 Range/Units 17:11 17:11 17:11 Urine Color Cancelled Yellow TNP Urine Appearance Cancelled Turbid TNP Urine pH Cancelled 6.0 TNP Ur Specific Freedom Cancelled 1.015 TNP Urine Protein Cancelled Trace TNP Urine Glucose (UA) Cancelled Negative TNP Noncontrast head CT revealed moderate cortical atrophy. Microvascular ischemic changes were also noted. Microbiology Microbiology Results: Microbiology 04/11/22 Unknown Urine clean catch - Urine leroy top Urine Culture - Preliminary Culture too young to evaluate. Assessment and Plan (1) Ataxia: Status: Acute 77 years old man with underlying right acoustic schwannoma, which probably is not the cause of his present problem. He was mildly unsteady and his family reported that this was changed from baseline and his speech was still not to the baseline. Exam revealed hyper reflexia of legs. A pontine infarct can present in this fashion. I recommend a noncontrast MRI of brain for definition as there is no other plausible etiology. Otherwise for vascular pathology, baby aspirin daily and blood pressure control recommended Time Spent With Patient Time: Total time managing care of this patient today ____ minutes. Procedures Date of Service Date of Service: 04/12/22
--- NOTE | 2022-04-12 13:05 | MHC.CM.PN ---
Addendum entered by Caron Kunz 04/12/22 15:07: Patient is discharged to home today with family assist and transport Original Note: CARLOS 04/12/22 Male DX Ataxia. He is planned for an MRI after Pacer deactivation. He lives with his . Prior to admit he was independent with all functional mobility. PT eval rec home services. DP home with services . Patients will transport home. A copy of his HCP has been requested. He has been vaxxed x5.
[2022-04-12 15:00] VITALS: BP 146/70; PULSE 82; RESP 19; TEMP 36.4
[2022-04-12] MEDS: Dronedarone HCl 400 MG TABLET PO (15:04)
[2022-04-12] MEDS: Cyanocobalamin (Vitamin B-12) 1,000 MCG TABLET 1000 MCG PO (15:05)
[2022-04-12] MEDS: Aspirin Enteric Coated 81 MG TABLET.DR PO (15:05)
[2022-04-12] MEDS: atenoloL 25 MG TABLET PO (15:05)
--- NOTE | 2022-04-12 17:58 | P.DS_ITS ---
DS: Providers Provider Date of Service: 04/12/22 Date of admission: 04/11/22 16:26 Primary care physician: Sukumar Sam MD Consults: 04/11/22 16:28 Consult to Neurology Routine Consulting Provider: [facility] Reason for consultation: Ataxia Has provider been notified: No DS: Summary Hospital Course Hospital Course: Chief Complaint: Ataxic gait 77-year-old male with multiple medical problem including history of? ? 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 He gets? yearly MRI at [facility]. He is here today because? a? sense of imbalance for 3 to 4 days, essentially he feels unsteady when walking, has not fallen, no dizziness, he's still able to walk independently. Family also notes? some speech changes, no weakness, no difficulty swallowing, Symptoms are more pronounced getting up from a sitting, and initiating walking. there has not been? loss of consciousness.? CT head show no acute pathology. WBC is 20, he has no sings or symptoms of infection. MRI is planned but needs pacemaker disabled before that. Hospital course: Patient was admitted for ataxia and some slur speech with concern of possible stroke vs issues with acoustic neuroma. He evaluated by Neurology and an MRI was recommended however because of his pacemaker the MRI could not be done until programed by [employer] , a multiple attempts were made to reach [facility] for this purpose but we did not receive a call back and hence the MRI could not be done at time, patient was frustrated (understandably so) and wanted to be discharged if the MRI could not be done by the end of that day, unfortunately it could not be done at that time. I reached to Dr. Beckham and stated in the event could be discharged and MRI pursuit on outpatient basis, as it would not affect management in the immediacy. Time Spent with Patient Time attestation: Total time managing care of this patient today ____ minutes. Discharge coordination time: Greater than 30 minutes Quality: Safe Use of Opioids Does Pt have an Active Cancer Diagnosis on the Problem List?: No Quality: Stroke Does the patient have a stroke diagnosis?: No Physical Exam Vital Signs: Vital Signs: Last Vital Signs Temp 97.6 F 04/12/22 15:00 Pulse 82 04/12/22 15:00 Resp 19 04/12/22 15:00 BP 146/70 H 04/12/22 15:00 Pulse Ox 99 04/12/22 11:23 O2 Del Method 04/12/22 11:23 BMI result Body Mass Index 29.0 Discharge Plan Discharge Anticipated Discharge Date/Time: 04/12/22 12:22 Patient Disposition: Home, Self-Care Discharge Diagnosis: Ataxia, slur speech, rule out TIA or stroke Referrals: Sukumar Sam MD [Primary Care Provider] - 1 Week Discharge Medications: Continued cyanocobalamin (vitamin B-12) [Vitamin B-12] 1,000 mcg Tablet 1,000 mcg PO DAILY atenolol 50 mg tablet 25 mg PO BID Xarelto 15 mg tablet 15 mg PO DAILY@1700 Rx Instructions: must administer with evening meal meclizine 12.5 mg tablet 12.5 mg PO DAILY PRN (Reason: dizziness) Qty: 10 0RF atorvastatin 40 mg tablet 40 mg PO BEDTIME aspirin [Adult Low Dose Aspirin] 81 mg tablet,delayed release (DR/EC) 81 mg PO DAILY Multaq 400 mg tablet 400 mg PO BID Qty: 90 1RF Rx Instructions: must administer with a meal/food Discharge Orders: Discharge Order (Routine); Ordered 04/12/22 Ordered By: Nirmal Turcios Diet: Advance to usual diet Activity on Discharge: As tolerated Stand Alone Forms: Patient Portal Discharge page Care Plan Goals: work up and resolution from ataxia (unsteady gait) Health Concerns: ataxia (unsteady gait) rule out stroke Outpatient MRI through your PCP office Plan of Treatment: outpatient mri followup with your doctor Assessment: see above Discharge Date/Time: 04/12/22 15:48
== END 2022-04-12 15:48 | disposition home or self-care (01) ==
LOC: HO.ED 16:27 → HO.EDOVER 16:47 → HO.IMC 16:52
PROVIDERS: Nurse Practitioner Family; Physician Assistant Medical; Admitting Provider Internal Medicine; Emergency Provider Emergency Medicine; PCP Internal Medicine; Visit Provider Internal Medicine
DX: R27.8 Other lack of coordination (principal); H93.12 Tinnitus, left ear; D33.3 Benign neoplasm of cranial nerves; Z95.0 Presence of cardiac pacemaker; R29.2 Abnormal reflex; D72.829 Elevated white blood cell count, unspecified; I48.21 Permanent atrial fibrillation; Z79.01 Long term (current) use of anticoagulants; E78.5 Hyperlipidemia, unspecified; Z20.822 Contact with and (suspected) exposure to COVID-19
CPT/HCPCS: 0241U; 36415; 70450; 71046; 80053; 81001; 83735; 84484; 85025; 85610; 87086; 93005; 96360; 96361; 97162; 99222; 99285

== ENCOUNTER → 2022-04-29 08:34 | Outpatient (BNVA) | payer MEDICARE, SELFPAY | PROVIDERS: PCP Internal Medicine; Visit Provider Internal Medicine Cardiovascular Disease | DX: I48.0 Paroxysmal atrial fibrillation (principal); I25.10 Atherosclerotic heart disease of native coronary artery without angina pectoris; Z45.018 Encounter for adjustment and management of other part of cardiac pacemaker; Z86.73 Personal history of transient ischemic attack (TIA), and cerebral infarction without residual deficits; Z79.01 Long term (current) use of anticoagulants; Z79.82 Long term (current) use of aspirin | CPT/HCPCS: 93280; 99212 ==

== ENCOUNTER 2022-07-04 11:02 | Outpatient (REF) | payer MEDICARE, SELFPAY ==
--- NOTE | ~2022-07-04 | CT_ITS ---
EXAMINATION: CT ABDOMEN AND PELVIS WITHOUT CONTRAST CLINICAL INFORMATION: Transitional cell bladder cancer. COMPARISON: CT urogram 10/10/2021. TECHNIQUE: Multidetector volumetric imaging was performed from the superior aspect of the liver through the pubic symphysis. Sagittal and coronal reformatted images were obtained on the technologist's workstation. This CT examination was performed using dose optimization techniques as appropriate, variously including the following: *Automated exposure control *Adjustment of mA and/or kV according to patient size (this includes techniques or standardized protocols for targeted exams where dose is matched to indication/reason for exam; i.e. extremities or head) *Use of iterative reconstruction technique DLP: 375 mGy-cm FINDINGS: LUNG BASES: Minimal atelectatic changes or scarring of the left lung base. There are pacer electrodes in the right atrium and right ventricle. The heart size is normal. LIVER, GALLBLADDER, AND BILIARY TREE: The liver is normal in size, shape, and attenuation. There are multiple hypodense right hepatic lobe lesions, new. The largest lesions measure 4 cm right hepatic lobe anterior segment (image 22/3), 4.8 cm posterior segment right hepatic lobe (image 34/3). Smaller hypodense lesions are seen in the left hepatic lobe. Some of these may represent cysts. The gallbladder is unremarkable with no evidence of radiopaque gallstones, gallbladder wall thickening, or obvious pericholecystic inflammatory changes. PANCREAS: Unremarkable. SPLEEN: Unremarkable. ADRENAL GLANDS: Unremarkable. KIDNEYS AND URETERS: The kidneys are normal in size, shape, and attenuation. No hydronephrosis, hydroureter, or calculi are seen. No perinephric stranding. BLADDER: The bladder has been surgically removed. An ileal loop is noted in the right lower quadrant extending to a right lower quadrant ileostomy. GASTROINTESTINAL TRACT: There is scattered stool and diverticula seen throughout the colon without distention. The small bowel loops are normal caliber. Appendix is not visualized. ABDOMINAL WALL: There is a right lower quadrant ileostomy with paraileostomy herniation of the right colon. LYMPH NODES: Normal. VASCULAR: Unremarkable. PELVIC VISCERA: There is new soft tissue mass in the left pelvis deviating the sigmoid colon to the right. The mass measures approximately 6.8 x 4.7 cm, likely a large metastatic left pelvic lymph node. It is best visualized on axial image 64/3. The soft tissue mass extends to the lateral left pelvic wall with mild soft tissue thickening of the left lateral pelvic wall. OSSEOUS STRUCTURES: No aggressive lytic or sclerotic process is seen. There is mild posterior spondylosis. CT/CT abdomen pelvis wo IV con IMPRESSION: Large left pelvic mass, likely recurrent tumor or metastatic left internal iliac lymph node. New multiple liver lesions, likely metastatic. Cystectomy with ileal conduit extending through the right lower quadrant ileostomy. There is a right paraileostomy herniation of the descending colon. The herniation is stable. Fleischner guidelines were followed.
== END 2022-07-04 11:03 | disposition home or self-care (01) ==
LOC: HO.CT 11:02
PROVIDERS: PCP Internal Medicine; Visit Provider Urology
DX: C67.9 Malignant neoplasm of bladder, unspecified (principal)
CPT/HCPCS: 74176

== ENCOUNTER 2022-07-11 10:20 | Outpatient (REF) | payer MEDICARE, SELFPAY ==
--- NOTE | ~2022-07-11 | XR_ITS ---
EXAMINATION: XR CHEST CLINICAL INFORMATION: Subacute cough COMPARISON: Chest radiographs 04/11/2022, 03/07/2022; CT abdomen 07/04/2022. TECHNIQUE: 2 frontal views and 2 lateral views of the chest are obtained for a total of 4 views. FINDINGS: There is mild hyperinflation similar to prior studies. The lungs are clear and the vascularity is normal. There is no airspace consolidation or groundglass opacity or effusion. Heart size normal. There is a bipolar pacemaker with atrial and ventricular leads again seen. The hilar and mediastinal contours and bony structures are similar to prior studies. XR/XR chest 2V IMPRESSION: No acute intrathoracic disease.
[2022-07-11 11:57] LABS: Free T4 (Free Thyroxine) 1.13 ng/dL (0.71-1.85); Prostate Specific Antigen < 0.10 ng/mL (<0.05-4.0); Thyroid Stimulating Hormone 2.12 uIU/mL (0.32-4.0)
[2022-07-15 21:34] LABS: Lyme Abs Screen <0.90 index
[2022-07-17 15:09] LABS: Anti Nuclear Antibody Screen NEGATIVE (NEGATIVE)
== END 2022-07-11 10:21 | disposition home or self-care (01) ==
LOC: HO.XRAY 10:20
PROVIDERS: PCP Internal Medicine; Visit Provider Internal Medicine
DX: Z12.5 Encounter for screening for malignant neoplasm of prostate (principal); R05.2 Subacute cough; E78.00 Pure hypercholesterolemia, unspecified; R63.4 Abnormal weight loss; I10 Essential (primary) hypertension; I48.0 Paroxysmal atrial fibrillation; R27.0 Ataxia, unspecified
CPT/HCPCS: 36415; 71046; 84153; 84439; 84443; 86038; 86617; 86618

== ENCOUNTER → 2022-07-17 14:11 | Outpatient (BNVA) | payer MEDICARE, SELFPAY | PROVIDERS: PCP Internal Medicine; Visit Provider Urology | DX: C67.9 Malignant neoplasm of bladder, unspecified (principal) | CPT/HCPCS: Q3014 ==